=== PATIENT | female | born 1965 | race African-American/Black ===

== ENCOUNTER → 2016-12-20 10:37 | Outpatient (CLI) | payer MEDICAID ==
[2016-01-23 10:59] VITALS: BMI 39.6
[~2016-12-20 10:37] MED LIST: ASPIRIN; BENZTROPINE ME0.5 MG PO; CAFFEINE; COUMADIN5 MG PO; GLUCOPHAGE1000 MG PO; LANTUS SOL100 UNIT/1 SQ; MINOCIN100 MG PO; MOBIC7.5 MG PO; MS CONTIN15 MG PO; NORCO 10/325 TA1 TA1 PO; NORVASC10 MG PO; SEROQUEL400 MG PO; TOPAMAX25 MG PO; ZESTRIL40 MG PO; ZOLOFT100 MG PO
[2016-12-20 11:09] LABS: BASOPHILS 0.3 % (0.0-2.0); EOSINOPHILS 2.2 % (0-7); HEMATOCRIT 36.3 % (36.0-48.0); HEMOGLOBIN 12.1 g/dL (12-16); IMMATURE GRANULOCYTES 0.2 % (0-5); LYMPHOCYTES 35.1 % (15-50); MCH 27.1 pg (26.0-34.0); MCHC 33.3 g/dL (31.0-37.0); MCV 81.2 fL (80.0-100.0); MEAN PLATELET VOLUME 9.7 fL (7.4-10.4); MONOCYTES 14.3 % (2-11); NEUTROPHILS 47.9 % (40-80); RBC 4.47 10x6/uL (4.00-5.40); RDW 14.3 % (11.5-14.5); WBC 5.9 10x3/uL (4.8-10.8)
[2016-12-20 11:10] LABS: PLATELET COUNT 311 10x3/uL (130-400)
[2016-12-20 11:38] LABS: ANION GAP 10.7 mmol/L (8-16); C-REACTIVE PROTEIN 3.4 mg/dL (0.0-0.9); CALCIUM 9.2 mg/dL (8.5-10.1); CARBON DIOXIDE 26.9 mmol/L (21.0-32.0); POTASSIUM - SERUM 3.6 mmol/L (3.5-5.1)
[2016-12-20 12:21] LABS: ERYTHROCYTE SEDIMENTATION RATE 61 mm/hr (0-30)
== END | disposition home or self-care (01) ==
LOC: D.LABREF 10:37
PROVIDERS: Orthopaedic Surgery Sports Medicine
DX: T84.9XXA Unspecified complication of internal orthopedic prosthetic device, implant and graft, initial encounter (principal)

== ENCOUNTER 2017-01-19 18:10 | Emergency (ER) | payer MEDICAID ==
[2016-01-23 10:59] VITALS: BMI 39.6
[~2017-01-19 18:10] MED LIST changes: -ASPIRIN; -CAFFEINE; -MINOCIN100 MG PO
== END 2017-01-19 21:40 | disposition home or self-care (01) ==
LOC: D.ER 18:10
DX: S89.92XA Unspecified injury of left lower leg, initial encounter (principal); V43.52XA Car driver injured in collision with other type car in traffic accident, initial encounter; Y93.89 Activity, other specified; Y92.410 Unspecified street and highway as the place of occurrence of the external cause; M25.462 Effusion, left knee; E11.9 Type 2 diabetes mellitus without complications; Z79.4 Long term (current) use of insulin; G40.909 Epilepsy, unspecified, not intractable, without status epilepticus

== ENCOUNTER 2017-02-01 13:26 | Emergency (ER) | payer MEDICAID ==
[2016-01-23 10:59] VITALS: BMI 39.6
== END 2017-02-01 15:46 | disposition home or self-care (01) ==
LOC: D.ER 13:26
DX: L03.116 Cellulitis of left lower limb (principal); L02.416 Cutaneous abscess of left lower limb; E11.9 Type 2 diabetes mellitus without complications; Z79.4 Long term (current) use of insulin; G40.909 Epilepsy, unspecified, not intractable, without status epilepticus; F17.200 Nicotine dependence, unspecified, uncomplicated

== ENCOUNTER 2017-02-12 05:13 | Inpatient (IN) | payer MEDICAID ==
[2017-02-11 13:44] LABS: BASOPHILS 0.2 % (0-2); HEMOGLOBIN 11.2 g/dL (12-16); IMMATURE GRANULOCYTES 0.3 % (0-5); MCH 25.8 pg (26.0-34.0); MCV 80.6 fL (80.0-100.0); MEAN PLATELET VOLUME 9.4 fL (7.4-10.4); MONOCYTES 12.7 % (2-11); NEUTROPHILS 60.8 % (40-80); PLATELET COUNT 311 10x3/uL (130-400); RBC 4.34 10x6/uL (4.00-5.40); RDW 14.7 % (11.5-14.5); WBC 8.8 10x3/uL (4.8-10.8)
[2017-02-11 13:56] LABS: APPEARANCE CLEAR (CLEAR); BILIRUBIN NEGATIVE (NEGATIVE); COLOR DK YELLOW (YELLOW); GLUCOSE 1000 mg/dL (NEGATIVE); KETONE NEGATIVE (NEGATIVE); LEUKOCYTE ESTERASE NEGATIVE (NEGATIVE); NITRITE NEGATIVE (NEGATIVE); PROTEIN NEGATIVE (NEGATIVE); SPECIFIC GRAVITY 1.015 (1.005-1.020); UROBILINOGEN NORMAL (NORMAL)
[2017-02-11 14:07] LABS: ANION GAP 13.1 mmol/L (8-16); CALCIUM 9.3 mg/dL (8.5-10.1); CARBON DIOXIDE 25.1 mmol/L (21.0-32.0); CREATININE - SERUM 1.2 mg/dL (0.6-1.3); POTASSIUM - SERUM 4.2 mmol/L (3.5-5.1)
[2017-02-11 14:17] LABS: APTT 20.4 SECONDS (22.8-39.4); INR 0.92 (0.85-1.17); PROTIME 12.2 SECONDS (11.6-15.0)
[2017-02-12] VITALS (10 sets, daily range): BP systolic 90–129; BP diastolic 56–89; BMI 36.5
[~2017-02-12] VITALS: Ht 167.6 cm; Wt 102.5 kg
--- NOTE | ~2017-02-12 | OP ---
PATIENT NAME: SUZI SHAVER MEDICAL RECORD: [id number] :61 LOCATION:[facility] ADMISSION DATE: SURGEON: RAFITA MIRAMONTES MD DATE OF OPERATION: 02/12/2017 PREOPERATIVE DIAGNOSIS: Left infected total knee arthroplasty. POSTOPERATIVE DIAGNOSIS: Left infected total knee arthroplasty. PROCEDURE PERFORMED: Left total knee arthroplasty removal with cement spacer placement and PICC line placement by Dr. Higgins. SURGEON: Chandu Miramontes MD. ANESTHESIA: General. TOURNIQUET TIME: The tourniquet was let up for 60 minutes. CONDITION: She tolerated the procedure well, was awakened and transferred to the recovery room in stable condition. INDICATIONS: This is a 51-year-old female that had a total knee arthroplasty placed several years ago. She subsequently developed a lifestyle of IV drug abuse and other problems and has developed an infection in her left total knee. This has clearly been noted recently and she had pus coming out of her incision site this past week; therefore, we elected to go ahead and take it out. I have discussed with her prior to this that there is no guarantee I will put anything back in especially in light of her drug history. She may have to be considered for a fusion or may have to go for a second opinion, but we will cross that bridge when we get there. OPERATIVE REPORT: The patient was taken to the operating room and placed in supine position. General anesthesia was obtained. Left knee was confirmed to be the correct knee, it was prepped and draped in normal fashion. Midline incision was made using the previous incision. Once inside the joint, there was clearly foul-smelling significant amount of changes, also noted from the prosthesis being loose. Both components were removed without significant difficulty. Cement was removed as well. Both the femur and the tibia were reamed up to a size 14 to clear out the canal. They were copiously irrigated. The patella was taken off as well as the cement and pegs from the patella. While this was being accomplished, the femur and tibial spacer block was formed using 4 g of vancomycin and tobramycin in the cement. These were used forming the 2 components. Once they were hardened, they were placed. The leg was placed in extension. She had been copiously irrigated as well as extensively debrided of soft tissue. She was held in extension, following which I closed with #1 PDS, 2-0 Vicryl, harvey and then placed a Prevena dressing. Dr. Higgins then placed a PICC line. She will be on IV antibiotics. We will consultation Dr. Jackson and we will just have to see how she progresses from this juncture. TRANSINT:[id number] Voice Confirmation ID: [id number] DOCUMENT ID: [id number] OPERATIVE REPORT [id number] SUZI SHAVER, RAFITA SOMMERS MD CC: [id number] DICTATION DATE: 02/12/17 1247 CLEANER SIGNS: 02/12/17 1313 REG [facility] [address] [place] [address]
[2017-02-12] MEDS ORDERED: CAFFEINE (08:24)
[2017-02-12] MEDS ORDERED: ASPIRIN (08:24)
[2017-02-12] MEDS ORDERED: MINOCIN100 MG PO (08:29)
--- NOTE | 2017-02-12 13:22 | NUR ---
RECEIVED TO ROOM 2230 AT THIS TIME FROM PACU. PT SLEEPING, BUT AROUSABLE. IV TO LEFT FOREARM PATENT AND DRESSING TO LEFT UPPER ARM PICC LINE WITH DATE IN PLACE. VITAL SIGNS INITIATED PER POST OP PROTOCOL. CALL LIGHT IN REACH, BED ALARM ON. DOOR OPEN. WILL CONTINUE WITH PLAN OF CARE.
--- NOTE | 2017-02-12 14:52 | OP ---
PATIENT NAME: SUZI SHAVER MEDICAL RECORD: [id number] :61 LOCATION:D.[facility] ADMISSION DATE: SURGEON: JEANCARLOS SOLER MD DATE OF OPERATION: 02/12/2017 PREOPERATIVE DIAGNOSES: 1. Infected left knee prosthesis. 2. Diabetes mellitus. 3. Hypertension. 4. Obstructive sleep apnea. POSTOPERATIVE DIAGNOSES: 1. Infected left knee prosthesis. 2. Diabetes mellitus. 3. Hypertension. 4. Obstructive sleep apnea. PROCEDURE: Left brachial vein PICC line placement with ultrasound guidance. SURGEON: Jeancarlos Soler MD. REPORT OF PROCEDURE: The patient's left upper extremity was prepped and draped in sterile fashion. Using ultrasound guidance, a needle was used to cannulate the left brachial vein. The guidewire was advanced with ease. The dilator trocar device was placed over the wire and the dilator was removed. The PICC line had been cut at 40 cm with a beveled tip. This was placed over the wire through the dilator and the wire and dilator were removed. The catheter aspirated nonpulsatile dark blood and flushed easily with heparinized saline. This was sutured into place with a 2-0 Prolene and dressed appropriately. COMPLICATIONS: None. CONDITION: Stable. ANESTHESIA: General endotracheal. BLOOD LOSS: Minimal. TRANSINT:[id number] Voice Confirmation ID: [id number] DOCUMENT ID: [id number] JEANCARLOS SOLER MD at 1452 CC: [id number] DICTATION DATE: 02/12/17 1253 WATERMELON HARVESTING SUPERVISOR: 02/12/17 1345 [address] [place] [address]
--- NOTE | 2017-02-12 17:45 | NUR ---
NOTIFIED REGINO, DEPOSITION OPERATOR THAT A WOUND VAC WAS NEEDED FOR PT DUE TO FULL CANISTER ON PROVENA VAC AND DURATION OF PT'S STAY IN THE HOSPITAL.
[2017-02-13 04:00] VITALS: BP 96/54
[2017-02-13 06:39] LABS: BASOPHILS 0.2 % (0-2); EOSINOPHILS 1.4 % (0-7); IMMATURE GRANULOCYTES 0.2 % (0-5); LYMPHOCYTES 17.2 % (15-50); MCH 25.5 pg (26.0-34.0); MCV 79.7 fL (80.0-100.0); MEAN PLATELET VOLUME 9.7 fL (7.4-10.4); MONOCYTES 17.1 % (2-11); NEUTROPHILS 63.9 % (40-80); RDW 14.7 % (11.5-14.5); WBC 10.4 10x3/uL (4.8-10.8)
[2017-02-13 06:40] LABS: HEMATOCRIT 27.5 % (36.0-48.0); HEMOGLOBIN 8.8 g/dL (12-16); PLATELET COUNT 215 10x3/uL (130-400); RBC 3.45 10x6/uL (4.00-5.40)
[2017-02-13 06:46] LABS: ALBUMIN 1.9 g/dL (3.4-5.0); ANION GAP 10.5 mmol/L (8-16); BILIRUBIN - TOTAL 0.63 mg/dL (0.2-1.3); CALCIUM 8.2 mg/dL (8.5-10.1); CARBON DIOXIDE 24.1 mmol/L (21.0-32.0); CREATININE - SERUM 0.9 mg/dL (0.6-1.3); POTASSIUM - SERUM 3.6 mmol/L (3.5-5.1); PROTEIN - SERUM 6.9 g/dL (6.4-8.2)
--- NOTE | 2017-02-13 07:11 | NUR ---
FOURTH PROVENA VAC APPLIED.NO YEMI. IN NEUROVASCULAR STATUS SINCE INITIAL ASSESSMENT.
[2017-02-13 08:25] VITALS: BP 119/74
--- NOTE | 2017-02-13 09:45 | NUR ---
LEFT PICC LINE DRESSING CHANGED IN STERILE FASHION. DRESSING SIGNED AND DATED. PT TOLERATED WITHOUT COMPLAINTS.
--- NOTE | 2017-02-13 09:52 | NUR ---
Verbalized name and , states pain to right leg whenever she moves, leg assessed, immobilizer/ acewrap dressing in place and knee is swollen, portable prevena canister full, lifted device to change and noted large amount of bloody drainage flowing from top of Prevena dressing, informed charge nurse. Wound nurse Geena assessed wound, prevena dressing is saturated but dressing is intact and suctioning as it should, connected to bedside prevena canister, immediately flow into canister, dressing reinforced and secured in place.
--- NOTE | 2017-02-13 10:45 | NUR ---
WOUND CARE: ULTA VAC (HOSPITAL VAC) ATTACHED TO PREVENA DRESSING ON LEFT KNEE D/T LARGE AMOUNT OF BLOODY DRAINAGE. REINFORCED PREVENA DRESSING WITH EXTRA DRAPE. WILL MONITOR.
[2017-02-13 10:59] VITALS: BP 123/69
--- NOTE | 2017-02-13 11:30 | NUR ---
Dressing to left knee remains dry and intact with prevena bedside canister in place. SCD hose in place to right leg. Pain is managed.
--- NOTE | 2017-02-13 12:44 | NUR ---
Patient Name: SUZI SHAVER Admission Status: Elective Accout number: [id number] Admission Date: 02-12-2017 : 1965 Admission Diagnosis:INFECT/INFLM REACTION DUE TO INTERNAL LEFT KNEE PROSTH, Attending: PADMINI Current LOS: 1 Anticipated DC Date: 02-16-2017 Planned Disposition: Home with Home Health Primary Insurance: [place]ID [place] Discharge Planning Comments: CM MET WITH PATIENT REGARDING D/C NEEDS AND PLANS. PATIENT STATED SHE LIVES WITH HER MOM AND SHE WILL DRIVE HER HOME AT DISCHARGE. PATIENT STATED SHE IS INDEPENDENT AT HOME AND HAS A WALKER, CANE, SHOWER CHAIR, VS COMMODE, AND GLUCOMETER (TRYS TO CHECK DAILY). PATIENT STATED HER PCP IS AT [facility] ([facility] AT THAT CLINIC). PATIENT USES [facility] [address]. PATIENT CHOSE [facility] AND SIGNED THE KARLA FORM IF NEEDED AT DISCHARGE. CM WILL CONTINUE TO FOLLOW PATIENT WITH D/C NEEDS AND PLANS. PCP [facility]ONA [facility] ([facility]) [facility] ([facility]) GAURAV FLANAGAN ([facility] [phone] OR [phone] Ancillary Services Manager: La Friedman Is the patient Alert and Oriented? Yes 0 * How many steps to enter\exit or inside your home? 0 0 * PCP RONA DUARTE ([facility]) 0 * [facility]acy [facility] [address] [facility] * Preadmission Environment Home with Family 0 * ADLs Independent 0 * Equipment Bedside Commode Cane Glucometer Shower Chair Walker 0 * List name and contact numbers for known caregivers / representatives who currently or will assist patient after discharge: GAURAV FLANAGAN ([facility]) [phone] OR [phone] * Community resources currently utilized None 0 * Additional services required to return to the preadmission environment? Yes 0 * Can the patient safely return to the preadmission environment? Yes 0 * Has this patient been hospitalized within the prior 30 days at any hospital? No 0 Grand Total: 0
[2017-02-13 15:44] VITALS: Ht 167.6 cm; Wt 102.5 kg
[2017-02-13 16:01] VITALS: BP 140/91
--- NOTE | 2017-02-13 20:15 | NUR ---
PATIENT IS RESTING WITH EYES CLOSED. NO VISIBLE SIGNS OF DISTRESS. BED IN LOWEST POSITION, CALL LIGHT WITHIN REACH, AND BED ALARM ON.
[2017-02-13 20:49] VITALS: BP 125/72
[2017-02-14 00:43] VITALS: BP 120/73
[2017-02-14 04:00] VITALS: BP 112/72
[2017-02-14 05:26] LABS: BASOPHILS 0.2 % (0-2); EOSINOPHILS 1.7 % (0-7); HEMATOCRIT 25.6 % (36.0-48.0); HEMOGLOBIN 8.3 g/dL (12-16); IMMATURE GRANULOCYTES 0.3 % (0-5); LYMPHOCYTES 19.1 % (15-50); MCH 25.7 pg (26.0-34.0); MCHC 32.4 g/dL (31.0-37.0); MCV 79.3 fL (80.0-100.0); MEAN PLATELET VOLUME 9.6 fL (7.4-10.4); MONOCYTES 19.1 % (2-11); NEUTROPHILS 59.6 % (40-80); PLATELET COUNT 187 10x3/uL (130-400); RBC 3.23 10x6/uL (4.00-5.40); RDW 14.6 % (11.5-14.5); WBC 13.5 10x3/uL (4.8-10.8)
[2017-02-14 05:47] LABS: ALBUMIN 1.9 g/dL (3.4-5.0); ALKALINE PHOSPHATASE 119 U/L (46-116); BILIRUBIN - TOTAL 0.56 mg/dL (0.2-1.3); CALCIUM 8.4 mg/dL (8.5-10.1); CARBON DIOXIDE 25.3 mmol/L (21.0-32.0); CHLORIDE - SERUM 100 mmol/L (98-107); CREATININE - SERUM 0.8 mg/dL (0.6-1.3); POTASSIUM - SERUM 3.2 mmol/L (3.5-5.1); PROTEIN - SERUM 6.8 g/dL (6.4-8.2); SODIUM 131 mmol/L (136-145); eGFR NON AFRICAN AMERICAN 79 mL/min (90-120)
[2017-02-14 05:52] LABS: ALT (SGPT) 14 U/L (10-68); CALC OSMOLALITY 272 mosm/kg (275-300); GLUCOSE 308 mg/dL (74-106); UREA NITROGEN 6 mg/dL (7-18)
[2017-02-14 07:58] VITALS: BP 114/63
--- NOTE | 2017-02-14 08:17 | NUR ---
PT ASESSMENT COMPLETE AWAKE AND ALERT EATING BREAKFAST NO ACUTE DISTRESS NTOED PT WITH FLAT AFFECT AND IS SLOW TO PROCESS INFORMATION AND RESPOND. WOUND VAC IN PLACE AND PATENT TO SANGUANOUS DRAINAGE NOTED DAY 2 POST OF SPACE PLACEMENT AND HARDWARE REMOVAL TO LEFT KNEE.
[2017-02-14 10:18] LABS: HEPATITIS C ANTIBODY >11.0 (0.0-0.9)
[2017-02-14 12:34] VITALS: BP 153/87
--- NOTE | 2017-02-14 13:20 | NUR ---
PATIENT IN LEFT LATERAL POSITION RESTING QUIETLY. RESPIRATIONS EVEN AND UNLABORED. DENIES NEEDS. SIDE RAILS UP X2. BED IN LOW POSITION. CALL LIGHT IN REACH.
[2017-02-14 16:03] VITALS: BP 149/85
--- NOTE | 2017-02-14 18:50 | NUR ---
WOUND VAC PATENT TO SEROSANGUANOUS DRAINAGE TO CANISTER. PAIN TREATED PER ORDER.
[2017-02-14 20:00] VITALS: BP 121/65
--- NOTE | 2017-02-14 20:00 | NUR ---
PATIENT RESTING IN BED AND DENIES NEEDS AT THIS TIME. BED IN LOWEST POSITION, CALL LIGHT WITHIN REACH, AND BED ALARM ON. ENCOURAGED THE PATIENT TO CALL IF SHE HAS FURTHER NEEDS.
[2017-02-15] VITALS: BP 111/60
[2017-02-15 04:00] VITALS: BP 117/69
[2017-02-15 06:38] LABS: BASOPHILS 0.2 % (0-2); HEMATOCRIT 22.7 % (36.0-48.0); IMMATURE GRANULOCYTES 0.4 % (0-5); LYMPHOCYTES 24.1 % (15-50); MCH 25.8 pg (26.0-34.0); MCHC 32.6 g/dL (31.0-37.0); MCV 79.1 fL (80.0-100.0); MEAN PLATELET VOLUME 9.6 fL (7.4-10.4); NEUTROPHILS 58.3 % (40-80); PLATELET COUNT 171 10x3/uL (130-400); RBC 2.87 10x6/uL (4.00-5.40)
[2017-02-15 06:43] LABS: WBC 8.6 10x3/uL (4.8-10.8)
[2017-02-15 06:52] LABS: HEMOGLOBIN 7.4 g/dL (12-16)
[2017-02-15 07:09] LABS: ALBUMIN 1.7 g/dL (3.4-5.0); ALKALINE PHOSPHATASE 149 U/L (46-116); ALT (SGPT) 15 U/L (10-68); CALCIUM 8.5 mg/dL (8.5-10.1); CHLORIDE - SERUM 103 mmol/L (98-107); CREATININE - SERUM 0.6 mg/dL (0.6-1.3); POTASSIUM - SERUM 3.4 mmol/L (3.5-5.1); PROTEIN - SERUM 6.3 g/dL (6.4-8.2); SODIUM 135 mmol/L (136-145); UREA NITROGEN 6 mg/dL (7-18); eGFR NON AFRICAN AMERICAN > 90 mL/min (90-120)
[2017-02-15 07:14] LABS: CALC OSMOLALITY 269 mosm/kg (275-300); GLUCOSE 142 mg/dL (74-106)
--- NOTE | 2017-02-15 07:45 | NUR ---
PT ASSESSMENT COMPLETE AWAKE AND ALERT ORINETD O SELF ONLY HAS SLOW PROCESSING OF INFORMATION NOTED. WOUND VAC T LEFT KNEE IMMOBILIZER IN PLACE
--- NOTE | 2017-02-15 14:08 | NUR ---
NUTRITION MONITORING & EVAL PT VISIT. TOLERATING REG DIET, 100% INTAKE RECENT MEALS. RD FOLLOWING
--- NOTE | 2017-02-15 17:30 | NUR ---
PT ASSESSMENT COMPLETE NO ACUTE DISTRESS NOTED VOICES ALL NEEDS TO STAFF 2 UNITS OF BLOOD GIVEN PER ORDER. 2ND UNIT TRANSFUSING AT THIS TIME
--- NOTE | 2017-02-15 20:00 | NUR ---
PT RECEIVED SITTING UP IN ROOM WATCHING TELEVISION. ASSESSMENT COMPLETED PER FLOWSHEET. DENIES NEEDS AT THIS TIME. BED IN LOW POSITION. SIDE RAILS UP X2. CALL LIGHT AND H2O IN PT REACH.
--- NOTE | 2017-02-15 21:13 | NUR ---
PATIENT RESTING IN BED WITH NO SIGNS OF DISTRESS AND DENIES NEEDS AT THIS TIME. CHECKED PATIENT'S BLOOD GLUCOSE, RESULTS 157. NOTIFIED BECKI JIN OF RESULTS. BED IN LOWEST POSITION, CALL LIGHT WITHIN REACH, AND BED ALARM IS ON. ENCOURAGED THE PATIENT TO CALL IF SHE HAS FURTHER NEEDS.
[2017-02-16] VITALS: BP 109/68
[2017-02-16 04:00] VITALS: BP 142/92
[2017-02-16 05:13] LABS: BASOPHILS 0.3 % (0-2); EOSINOPHILS 3.8 % (0-7); HEMATOCRIT 26.2 % (36.0-48.0); HEMOGLOBIN 8.6 g/dL (12-16); IMMATURE GRANULOCYTES 0.1 % (0-5); MCH 26.3 pg (26.0-34.0); MCHC 32.8 g/dL (31.0-37.0); MCV 80.1 fL (80.0-100.0); MEAN PLATELET VOLUME 9.5 fL (7.4-10.4); MONOCYTES 17.2 % (2-11); NEUTROPHILS 52.6 % (40-80); RBC 3.27 10x6/uL (4.00-5.40); RDW 14.9 % (11.5-14.5); WBC 8.7 10x3/uL (4.8-10.8)
[2017-02-16 05:14] LABS: PLATELET COUNT 212 10x3/uL (130-400)
[2017-02-16 05:41] LABS: ALBUMIN 1.7 g/dL (3.4-5.0); ALKALINE PHOSPHATASE 127 U/L (46-116); ALT (SGPT) 14 U/L (10-68); CALCIUM 8.3 mg/dL (8.5-10.1); CARBON DIOXIDE 25.6 mmol/L (21.0-32.0); CHLORIDE - SERUM 103 mmol/L (98-107); GLUCOSE 109 mg/dL (74-106); POTASSIUM - SERUM 3.3 mmol/L (3.5-5.1); PROTEIN - SERUM 6.5 g/dL (6.4-8.2); SODIUM 136 mmol/L (136-145); eGFR NON AFRICAN AMERICAN 79 mL/min (90-120)
[2017-02-16 05:42] LABS: CALC OSMOLALITY 271 mosm/kg (275-300); CREATININE - SERUM 0.8 mg/dL (0.6-1.3); UREA NITROGEN 9 mg/dL (7-18)
--- NOTE | 2017-02-16 08:38 | NUR ---
PT RESTING IN BED WITH EYES OPEN PT EATING BREAKFAST CALL LIGHT IN REAC WILL MONITER
[2017-02-16 09:55] VITALS: BP 124/76
[2017-02-16 12:31] VITALS: BP 108/76
--- NOTE | 2017-02-16 14:30 | NUR ---
PT AOX4 RESP EVEN AND NONLABORED PT DENIES NEEDS AT THIS TIME. PT HERE FOR INFECTED LEFT KNEE. IV LEFT PICC PATENT AND INTACT. PT DENIES NEEDS AT THIS TIME. BED AT LOWEST SETTING. SRX2 CALL LIGHT WITHIN REACH WILL CONTINUE TO MONITOR
[2017-02-16 16:50] VITALS: BP 137/90
--- NOTE | 2017-02-16 17:25 | NUR ---
PT RESTING IN BED WITH EYES OPEN CALL LIGHT IN REACH WILL MONITER
--- NOTE | 2017-02-16 17:56 | NUR ---
PT RESTING IN BED WITH EYES OPEN CALL LIGHT IN REACH WILL MONITER
[2017-02-16 19:00] VITALS: BP 129/83
[2017-02-17] VITALS: BP 118/71
[2017-02-17 04:00] VITALS: BP 120/74
[2017-02-17 05:40] LABS: BASOPHILS 0.3 % (0-2); EOSINOPHILS 3.2 % (0-7); HEMOGLOBIN 8.4 g/dL (12-16); IMMATURE GRANULOCYTES 0.1 % (0-5); LYMPHOCYTES 22.8 % (15-50); MCHC 32.3 g/dL (31.0-37.0); MCV 80.5 fL (80.0-100.0); MEAN PLATELET VOLUME 9.3 fL (7.4-10.4); MONOCYTES 22.8 % (2-11); NEUTROPHILS 50.8 % (40-80); PLATELET COUNT 242 10x3/uL (130-400); RBC 3.23 10x6/uL (4.00-5.40); RDW 15.1 % (11.5-14.5); WBC 7.1 10x3/uL (4.8-10.8)
[2017-02-17 06:04] LABS: ALBUMIN 1.8 g/dL (3.4-5.0); ALKALINE PHOSPHATASE 128 U/L (46-116); ALT (SGPT) 14 U/L (10-68); CALC OSMOLALITY 272 mosm/kg (275-300); CALCIUM 8.5 mg/dL (8.5-10.1); CARBON DIOXIDE 25.6 mmol/L (21.0-32.0); CHLORIDE - SERUM 104 mmol/L (98-107); CREATININE - SERUM 0.8 mg/dL (0.6-1.3); GLUCOSE 118 mg/dL (74-106); POTASSIUM - SERUM 3.5 mmol/L (3.5-5.1); PROTEIN - SERUM 6.9 g/dL (6.4-8.2); SODIUM 137 mmol/L (136-145); UREA NITROGEN 8 mg/dL (7-18); eGFR NON AFRICAN AMERICAN 79 mL/min (90-120)
--- NOTE | 2017-02-17 07:37 | NUR ---
PT REC'D FROM SAEED GUERRIER. RESTING IN BED ON L SIDE. WOUND VAC TO L KNEE PULLING SANGUINOUS FLUID. NO CURRENT COMPLAINTS OF PAIN. AAOX4. BED LOW, CALL LIGHT IN REACH, DENIES NEEDS. CPOC.
--- NOTE | 2017-02-17 08:20 | NUR ---
MORNING MEDS PASSED AT THIS TIME. STILL NO COMPLAINTS OF PAIN. BLINDS CLOSED BECAUSE PT STATED SHE DID NOT GET ANY SLEEP LAST NIGHT AND WOULD LIKE TO TAKE A NAP TODAY. BED LOW, CALL LIGHT IN REACH, DENIES NEEDS. CPOC.
[2017-02-17 08:22] VITALS: BP 128/81
--- NOTE | 2017-02-17 08:57 | NUR ---
PATIENT ALERT IN HIGH SHANE POSITION. NO SIGNS OF DISTRESS NOTED. SIDE RAILS UP X2. BED IN LOW POSITION. CALL LIGHT IN REACH.
--- NOTE | 2017-02-17 11:40 | NUR ---
PT UP IN CHAIR AT BEDSIDE. ASSISTED BY PHYSICAL THERAPY. ALICIA, PHYSICAL THERAPIST, STATED PT TRANSFERS WELL WITH WALKER AND MINIMAL ASSISTANCE. CURRENT FSBS 144. NO INSULIN ADMINISTERED PER SS. PRN PAIN MEDICATION ADMINISTERED DUE TO PT COMPLAINTS OF 8/10 LEG PAIN. WILL REASSESS. CALL LIGHT IN REACH, DENIES NEEDS. CPOC.
[2017-02-17 14:04] VITALS: BP 118/74
--- NOTE | 2017-02-17 14:28 | NUR ---
ASSISTED PT ONTO BEDPAN. URINATED APPROXIMATELY 500CC'S OF CLEAR YELLOW URINE. ABLE TO REPOSITION SELF IN BED. CALL LIGHT IN REACH, DENIES NEEDS.
--- NOTE | 2017-02-17 15:27 | NUR ---
PT RESTING IN BED WITH EYES CLOSED. NO SIGNS OF DISTRESS. RESP EVEN AND UNLABORED. BED LOW, CALL LIGHT IN REACH, CPOC.
[2017-02-17 16:45] VITALS: BP 128/79
--- NOTE | 2017-02-17 20:19 | NUR ---
PATIENT RESTING IN BED WITH NO VISIBLE SIGNS OF DISTRESS. BROUGHT PATIENT DIET COKE PER HER REQUEST. CHECKED PATIENT'S BLOOD GLUCOSE, RESULTS 168. NOTIFIED BECKI RICO OF RESULTS. PATIENT'S BED IN LOWEST POSITION, CALL LIGHT WITHIN REACH, AND BED ALARM ON. ENCOURAGED THE PATIENT TO CALL IF SHE HAS FURTHER NEEDS.
[2017-02-17 20:22] VITALS: BP 135/75
--- NOTE | 2017-02-17 20:49 | NUR ---
REC'D.ASSISTED TO BATHRM.VOIDED LGE AMT.DK. SHELLIE URINE.KNEE IMMOB. WITH WD. VAC INTACT TO LEFT LEG TOES VISIBLE WARM WIGGLES DENIES PAIN AT PRESENT TIME WILL CONTINUE TO MONITOR FOR ANY CHGES. IN NEUROVASCULAR STATUS AND FOLLOW CURRENT PLAN OF CARE.
[2017-02-18] VITALS: BP 122/71
[2017-02-18 04:00] VITALS: BP 135/84
[2017-02-18 06:21] LABS: BASOPHILS 0.3 % (0-2); EOSINOPHILS 1.3 % (0-7); HEMATOCRIT 26.5 % (36.0-48.0); HEMOGLOBIN 9.1 g/dL (12-16); IMMATURE GRANULOCYTES 0.4 % (0-5); LYMPHOCYTES 20.9 % (15-50); MCH 27.5 pg (26.0-34.0); MCHC 34.3 g/dL (31.0-37.0); MCV 80.1 fL (80.0-100.0); MEAN PLATELET VOLUME 9.2 fL (7.4-10.4); MONOCYTES 17.9 % (2-11); NEUTROPHILS 59.2 % (40-80); PLATELET COUNT 287 10x3/uL (130-400); RBC 3.31 10x6/uL (4.00-5.40); RDW 15.5 % (11.5-14.5); WBC 7.6 10x3/uL (4.8-10.8)
[2017-02-18 06:50] LABS: ALBUMIN 1.9 g/dL (3.4-5.0); ALKALINE PHOSPHATASE 116 U/L (46-116); ALT (SGPT) 13 U/L (10-68); CALC OSMOLALITY 274 mosm/kg (275-300); CALCIUM 8.6 mg/dL (8.5-10.1); CARBON DIOXIDE 24.3 mmol/L (21.0-32.0); CHLORIDE - SERUM 104 mmol/L (98-107); CREATININE - SERUM 0.8 mg/dL (0.6-1.3); GLUCOSE 138 mg/dL (74-106); POTASSIUM - SERUM 3.5 mmol/L (3.5-5.1); PROTEIN - SERUM 7.3 g/dL (6.4-8.2); SODIUM 137 mmol/L (136-145); UREA NITROGEN 9 mg/dL (7-18); eGFR NON AFRICAN AMERICAN 79 mL/min (90-120)
--- NOTE | 2017-02-18 07:30 | NUR ---
PT ASSESSMENT COMPLETE AWAKE AND ALERT ORIENTED TO NAME AND PLACE WOUND VAC NOTED TO LEFT KNEE AND IMMOBILIZER IN PLACE. PAIN TREATED PER ORDER. CALL LIGHT IN REACH SIDE RAILS UP X 2
--- NOTE | 2017-02-18 07:45 | NUR ---
PATIENT IN LEFT LATERAL POSITION RESTING WITH EYES CLOSED. RESPIRATIONS EVEN AND UNLABORED. SIDE RAILS UP X2. BED IN LOW POSITION. CALL LIGHT IN REACH.
[2017-02-18 08:44] VITALS: BP 150/85
[2017-02-18 12:00] VITALS: BP 124/75
--- NOTE | 2017-02-18 15:24 | NUR ---
NO ACUTE DISTRESS NOTED WAS UP IN CHAIR AT BEDSIDE X 3 HRS PER THERAPY TODAY TOLERATED WELL WOUND VAC IN TACT. IMMOBILIZER NOTED TO LEFT KNEE SEROSANGUANOUS DRAINAGE NTOED TO WOUND VAC TUBING.
[2017-02-18 16:56] VITALS: BP 104/67
[2017-02-18 18:00] VITALS: BP 120/79
--- NOTE | 2017-02-18 22:22 | NUR ---
PATIENT RESTING IN BED. ALERT AND ORIENTED. C/O PAIN 10/10 TO KNEE. PRN NORCO GIVEN ORDERED. SCHEDULED MEDS GIVEN. SHIFT ASSESSMENT COMPLETED. ASSISTED WITH BED DUARTE. NO OTHER NEEDS VOICED AT THIS TIME. BED LOW. CALL LIGHT IN REACH
--- NOTE | 2017-02-19 02:00 | NUR ---
PT IN BED WITH NO DISTRESS. RESPIRATIONS EVEN AND UNLABORED. SIDE RAILS X 2. BED LOW. CALL LIGHT IN REACH.
[2017-02-19 04:00] VITALS: BP 125/71
--- NOTE | 2017-02-19 04:00 | NUR ---
NO DISTRESS NOTED. AGREE WITH ACTION FINISHER ASSESSMENT.
[2017-02-19 05:54] LABS: HEMATOCRIT 26.5 % (36.0-48.0); HEMOGLOBIN 8.5 g/dL (12-16); MCH 25.8 pg (26.0-34.0); MCHC 32.1 g/dL (31.0-37.0); MCV 80.5 fL (80.0-100.0); MEAN PLATELET VOLUME 8.9 fL (7.4-10.4); PLATELET COUNT 324 10x3/uL (130-400); RBC 3.29 10x6/uL (4.00-5.40); RDW 15.7 % (11.5-14.5); WBC 7.2 10x3/uL (4.8-10.8)
[2017-02-19 06:24] LABS: ALBUMIN 1.9 g/dL (3.4-5.0); ALKALINE PHOSPHATASE 126 U/L (46-116); ALT (SGPT) 13 U/L (10-68); C-REACTIVE PROTEIN 3.1 mg/dL (0.0-0.9); CALC OSMOLALITY 274 mosm/kg (275-300); CALCIUM 8.5 mg/dL (8.5-10.1); CHLORIDE - SERUM 106 mmol/L (98-107); CREATININE - SERUM 0.8 mg/dL (0.6-1.3); POTASSIUM - SERUM 3.5 mmol/L (3.5-5.1); PROTEIN - SERUM 7.2 g/dL (6.4-8.2); SODIUM 139 mmol/L (136-145); UREA NITROGEN 8 mg/dL (7-18); eGFR NON AFRICAN AMERICAN 79 mL/min (90-120)
[2017-02-19 06:31] LABS: GLUCOSE 73 mg/dL (74-106)
[2017-02-19 07:34] LABS: EOSINOPHILS 2 % (0-7); LYMPHOCYTES 27 % (15-50); MONOCYTES 15 % (2-11); NEUTROPHILS 55 % (40-80); PLATELET ESTIMATE NORMAL
[2017-02-19 07:55] LABS: ERYTHROCYTE SEDIMENTATION RATE 78 mm/hr (0-30)
[2017-02-19 08:52] VITALS: BP 124/72
--- NOTE | 2017-02-19 09:05 | NUR ---
PATIENT IN LEFT LATERAL POSITION RESTING QUIETLY. RESPIRATIONS EVEN AND UNLABORED. SIDE RAILS UP X2. BED IN LOW POSITION. CALL LIGHT IN REACH.
--- NOTE | 2017-02-19 10:45 | NUR ---
PT SITTING UP IN CHAIR AT BEDSIDE AWAKE AND ALERT ORINETD X 3 LUNGS CLAER BILATERALLY. PAIN TREATED PER ORDER WITH NORCO.
--- NOTE | 2017-02-19 11:13 | NUR ---
PREVENA DRESSING REMOVED FROM INCISION TO LEFT KNEE. CLEANSED WITH SAFCLEANS AND PATTED DRY. APPLIED AQUACEL AG DRESSING, WRAPPED WITH NIMESH AND REAPPLIED THE KNEE BRACE. PT TOLERATED WELL.
--- NOTE | 2017-02-19 13:01 | NUR ---
NUTRITION MONITORING & EVAL CHART REVIEWED, PT TOLERATING DIABETIC DIET. 100% INTAKE RECENT MEALS. WILL CONTINUE TO PROVIDE DIET, MONITOR PO INTAKE. RD FOLLOWING
[2017-02-19 13:45] VITALS: BP 136/83
[2017-02-19 16:55] VITALS: BP 110/69
--- NOTE | 2017-02-19 21:48 | NUR ---
PATIENT RESTING IN BED. ALERT AND ORIENTED. NO SIGNS OF DISTRESS NOTED. SCHEDULED MEDS GIVEN. SHIFT ASSESSMENT COMPLETED. DENIES ANY NEEDS AT THIS TIME. BED LOW. CALL LIGHT IN REACH
[2017-02-20] VITALS: BP 109/67
--- NOTE | 2017-02-20 02:00 | NUR ---
PT IN BED WITH NO DISTRESS. RESPIRATIONS ARE EVEN AND UNLABORED. SIDE RAILS X 2. BED IS LOW. CALL LIGHT IS WITHIN REACH.
[2017-02-20 04:00] VITALS: BP 138/89
[2017-02-20 05:36] LABS: BASOPHILS 0.3 % (0-2); EOSINOPHILS 3.3 % (0-7); HEMATOCRIT 26.9 % (36.0-48.0); HEMOGLOBIN 8.8 g/dL (12-16); IMMATURE GRANULOCYTES 0.6 % (0-5); LYMPHOCYTES 25.9 % (15-50); MCH 26.4 pg (26.0-34.0); MCHC 32.7 g/dL (31.0-37.0); MCV 80.8 fL (80.0-100.0); MEAN PLATELET VOLUME 8.8 fL (7.4-10.4); MONOCYTES 18.3 % (2-11); NEUTROPHILS 51.6 % (40-80); PLATELET COUNT 370 10x3/uL (130-400); RBC 3.33 10x6/uL (4.00-5.40); WBC 7.2 10x3/uL (4.8-10.8)
[2017-02-20 06:02] LABS: ALKALINE PHOSPHATASE 125 U/L (46-116); ALT (SGPT) 11 U/L (10-68); CALC OSMOLALITY 274 mosm/kg (275-300); CARBON DIOXIDE 23.6 mmol/L (21.0-32.0); CHLORIDE - SERUM 104 mmol/L (98-107); CREATININE - SERUM 0.8 mg/dL (0.6-1.3); GLUCOSE 107 mg/dL (74-106); POTASSIUM - SERUM 3.7 mmol/L (3.5-5.1); PROTEIN - SERUM 7.6 g/dL (6.4-8.2); SODIUM 138 mmol/L (136-145); UREA NITROGEN 9 mg/dL (7-18); eGFR NON AFRICAN AMERICAN 79 mL/min (90-120)
--- NOTE | 2017-02-20 08:55 | NUR ---
ENTERED PATIENT'S ROOM, PATIENT SITTING UP ON THE SIDE OF THE BED, IMMOBILIZER OFF OF LEFT LEG, KNEE BENT. I STATED "WHO TOOK YOUR IMMOBILIZER OFF?" PATIENT STATED "I DID SO YOU CAN CHANGE THE DRESSING. THE PHYSICAL THERAPY LADY IS GOING TO GET ME UP AND IT STARTED BLEEDING SO I TOOK IT OFF." I EXPLAINED TO PATIENT THAT HER LEG HAS TO STAY STRAIGHT. PHYSICAL THERAPY ASSISTED PATIENT GETTING BACK IN BED, LAYING DOWN. WENT OUT TO THE DESK AND TOLD JANIS, NURSE PRACTIONER FOR . SHE STATED "APPLY XEROFORM, 4X4 GAUZE, ABD PAD AND MAKE A PRESSURE DRESSING."
[2017-02-20 09:01] VITALS: BP 126/80
[2017-02-20] MEDS ORDERED: HYDROCODONE-APA1 TAB PO (09:11)
[2017-02-20] MEDS ORDERED: ELIQUIS2.5 MG PO (09:12)
--- NOTE | 2017-02-20 09:15 | NUR ---
REMOVED OLD DRESSING. CLEANED WITH STERILE WOUND IT APPLICATIONS DEVELOPER AND STERILE 4X4 GAUZE. SMALL AMOUNT OF BLOOD DRIPING FROM INFERIOR PORTION OF THE INCISION, HAIDER INTACT. APPLIED XEROFORM, 4X4 GAUZE, 2 ABD PADS, AND SECURED A PRESSURE DRESSING USING CLOTH TAPE. WRAPPED WITH A NEW NIMESH BANDAGE. APPLIED IMMOBILIZER. EDUCATED PATIENT ON THE IMPORTANCE OF KEEPING KNEE STRAIGHT AND IMMOBILIZER ON. 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
--- NOTE | 2017-02-20 10:36 | NUR ---
CM REASSESSMENT NOTE: PATIENT IS DISCHARGING HOME TODAY-MOTHER DRIVING. PATIENT LIVES WITH HER MOTHER AND SHE WILL HELP WITH HER CARE AT HOME. PATIENT SIGNED THE KARLA FORM WITH [facility]/REFERRAL SENT. PATIENTS WHEELCHAIR WILL BE DELIVERED TO HER ROOM ([facility]) BEFORE DISCHARGE TODAY. PATIENT HAD NO OTHER NEEDS FOR DISCHARGE.
[2017-02-20] MEDS ORDERED: KEFLEX500 MG PO (11:02)
--- NOTE | 2017-02-20 11:05 | NUR ---
CALLED IN ORDER FOR AGUEDA TO [facility] SPOKE WITH CHEMO, PHARMACIST.
[2017-02-20 12:00] VITALS: BP 127/84
--- NOTE | 2017-02-20 13:32 | NUR ---
Order received for PICC line removal. Patient with left upper arm PICC line intact. PICC line sutures removed and removed following proper hospital policy. Pressure to site x 5 minutes, no bleeding noted. Tegaderm dressing applied and instructed on post hospital care. Meme Shaffer RN
--- NOTE | 2017-02-20 16:47 | NUR ---
ADMINISTERED FLEETS ENEMA
--- NOTE | 2017-02-20 16:59 | NUR ---
PATIENT HAD A MEDIUM SIZED BOWEL MOVEMENT. NOW BACK IN BED.
--- NOTE | 2017-02-20 17:51 | NUR ---
DISCHARGE INSTRUCTIONS COMPLETED WITH PATIENT AND HER MOM. BOTH VERBALIZED UNDERSTANDING AND DENY QUESTIONS.
[2017-02-20 17:56] VITALS: BP 103/69
--- NOTE | 2017-02-20 18:03 | NUR ---
TOOK PATIENT OUT VIA WHEELCHAIR. ASSISTED PATIENT GETTING INTO THE TRUCK.
[2017-02-21 18:10] LABS: AEROBE ID Final report (())
--- NOTE | 2017-02-22 16:36 | EC ---
PATIENT:SUZI SHAVER DATE OF SERVICE: 02/12/17 SEX: F MEDICAL RECORD: [id number] DATE OF : [birth year] LOCATION:D.[facility] AGE OF PATIENT: 51 ADMISSION DATE: 02/12/17 REFERRING PHYSICIAN: INTERPRETING PHYSICIAN: TIANA SELBY MD ECHOCARDIOGRAM REPORT ECHO CHARGES 4 ECHO COMPLETE CLINICAL DIAGNOSIS: MURMUR ECHOCARDIOGRAPHIC MEASUREMENTS (adult normal given) AC root (d.<3.7cm) 3.6 LV Septum d (<1.2 cm> 1.5 Valve Excursion 2.5 LV Septum (systole) 2.2 Left Atria (s.<4.0cm> 2.7 LVPW d(<1.2cm) 1.5 RV (d.<2.3cm) 3.3 LVPW (sytole) 2.2 LV diastole(<5.6CM) 4.7 MV E-F(>70mm/sec) LV systole 2.1 LVOT Diameter 2.0 MV exc.(>10mm) Est.ejection fraction (50-75%) Pericardial Effusion N DOPPLER: LVIT A 111.0 E 75.0 LA RVSP 53.1 LVOT 172 AOP1/2T 648.0 Asc. Ao 204 RVOT 69.0 RA PA 108 AV Gradient Peak 17.0 AV Mean 7.0 AV Area 2.8 MV Gradient Peak 6.9 MV Mean 2.9 MV Area COMMENTS: Production Statistical Clerk: Elvira CHAIDEZOE Cleaner Carpet And Upholstery:Zoey Ochoa TAPE# PACS DATE OF SERVICE: 02/13/2017 FINDINGS: 1. Left ventricular chamber size is within normal limits. Left ventricular systolic function is normal. Overall ejection fraction estimated at 65%. 2. Left atrium is within normal limits at 2.7 cm. Right atrium and right ventricular chamber sizes are mildly dilated. 3. Valvular structures have normal structure and motion. 4. Doppler interrogation reveals mild to moderate aortic insufficiency, moderate tricuspid regurgitation, no other valvular insufficiency or stenosis; ECHOCARDIOGRAM REPORT [id number] SUZI SHAVER however, pulmonary systolic pressure is elevated estimated at 53 mmHg. 5. No evidence of pericardial effusion or left ventricular thrombus. TRANSINT:[id number] Voice Confirmation ID: [id number] DOCUMENT ID: [id number] TIANA SELBY MD at 1636 CC: [id number] DICTATION DATE: 02/13/17 1745 KINDERGARTEN AIDE: 02/14/17 0339 DIS IN 02/20/17 [facility] [address] [address]
[2017-02-24 16:07] LABS: AEROBE ID Final report (())
== END 2017-02-20 18:03 | disposition home health service (06) | DRG 465 ==
LOC: D.OPS 05:13 → D.MS 05:13 → D.PAN 09:30 → D.OPS 09:30 → D.MS 13:18 → D.OPS 13:19 → D.MS 13:20
PROVIDERS: Family Medicine Adult Medicine; Student in an Organized Health Care Education/Training Program; ADMIT Orthopaedic Surgery Sports Medicine
PROC: B54NZZA Ultrasonography of Left Upper Extremity Veins, Guidance (ICD-10-PCS; 2017-02-12)
PROC: 0SPD0JZ Removal of Synthetic Substitute from Left Knee Joint, Open Approach (ICD-10-PCS; principal; 2017-02-12 09:30)
PROC: 0SHD08Z Insertion of Spacer into Left Knee Joint, Open Approach (ICD-10-PCS; 2017-02-12 09:30)
PROC: 05HA33Z Insertion of Infusion Device into Left Brachial Vein, Percutaneous Approach (ICD-10-PCS; 2017-02-12 09:30)
DX: T84.54XA Infection and inflammatory reaction due to internal left knee prosthesis, initial encounter (principal); E11.65 Type 2 diabetes mellitus with hyperglycemia; F31.9 Bipolar disorder, unspecified; I10 Essential (primary) hypertension; J45.909 Unspecified asthma, uncomplicated; F41.9 Anxiety disorder, unspecified; G47.33 Obstructive sleep apnea (adult) (pediatric); Z79.4 Long term (current) use of insulin; F32.9 Major depressive disorder, single episode, unspecified

== ENCOUNTER → 2017-04-22 14:38 | Outpatient (CLI) | payer MEDICAID ==
[2017-02-13 15:44] VITALS: BMI 36.4
[~2017-04-22 14:38] MED LIST changes: +ASPIRIN; +CAFFEINE; +ELIQUIS2.5 MG PO; +HYDROCODONE-APA1 TAB PO; +KEFLEX500 MG PO; +MINOCIN100 MG PO
[2017-04-22 15:29] LABS: BASOPHILS 0.7 % (0-2); EOSINOPHILS 2.3 % (0-7); HEMATOCRIT 36.3 % (36.0-48.0); HEMOGLOBIN 11.5 g/dL (12-16); IMMATURE GRANULOCYTES 0.2 % (0-5); MCH 26.6 pg (26.0-34.0); MCHC 31.7 g/dL (31.0-37.0); MEAN PLATELET VOLUME 9.8 fL (7.4-10.4); MONOCYTES 10.1 % (2-11); NEUTROPHILS 41.7 % (40-80); RBC 4.32 10x6/uL (4.00-5.40)
[2017-04-22 15:36] LABS: PLATELET COUNT 269 10x3/uL (130-400)
[2017-04-22 16:10] LABS: ALBUMIN 3.2 g/dL (3.4-5.0); BILIRUBIN - TOTAL 0.2 mg/dL (0.2-1.3); CALCIUM 8.8 mg/dL (8.5-10.1); CARBON DIOXIDE 21.7 mmol/L (21.0-32.0); PROTEIN - SERUM 8.2 g/dL (6.4-8.2)
[2017-04-22 16:16] LABS: ANION GAP 14.3 mmol/L (8-16)
[2017-04-22 16:50] LABS: ERYTHROCYTE SEDIMENTATION RATE 43 mm/hr (0-30)
== END | disposition home or self-care (01) ==
LOC: D.LABREF 14:38
PROVIDERS: Orthopaedic Surgery
DX: T84.59XA Infection and inflammatory reaction due to other internal joint prosthesis, initial encounter (principal)

== ENCOUNTER → 2017-05-24 14:23 | Outpatient (CLI) | payer MEDICAID ==
[2017-02-13 15:44] VITALS: BMI 36.4
[2017-05-24 14:43] LABS: C-REACTIVE PROTEIN < 0.2 mg/dL (0.0-0.9); CREATININE - SERUM 0.7 mg/dL (0.6-1.3); UREA NITROGEN 20 mg/dL (7-18)
[2017-05-24 15:04] LABS: BASOPHILS 0.4 % (0-2); EOSINOPHILS 2.1 % (0-7); HEMATOCRIT 40.2 % (36.0-48.0); HEMOGLOBIN 13.1 g/dL (12-16); LYMPHOCYTES 54.5 % (15-50); MCH 27.3 pg (26.0-34.0); MCHC 32.6 g/dL (31.0-37.0); MCV 83.8 fL (80.0-100.0); MEAN PLATELET VOLUME 9.8 fL (7.4-10.4); MONOCYTES 8.4 % (2-11); NEUTROPHILS 34.6 % (40-80); RDW 16.5 % (11.5-14.5); WBC 4.9 10x3/uL (4.8-10.8)
[2017-05-24 15:05] LABS: PLATELET COUNT 189 10x3/uL (130-400)
== END | disposition home or self-care (01) ==
LOC: D.LABREF 14:23
PROVIDERS: Student in an Organized Health Care Education/Training Program
DX: T84.59XA Infection and inflammatory reaction due to other internal joint prosthesis, initial encounter (principal); Z79.2 Long term (current) use of antibiotics

== ENCOUNTER → 2017-05-30 14:26 | Outpatient (CLI) | payer MEDICAID ==
[2017-02-13 15:44] VITALS: BMI 36.4
[2017-05-30 14:40] LABS: BASOPHILS 0.7 % (0-2); EOSINOPHILS 3.1 % (0-7); HEMATOCRIT 39.7 % (36.0-48.0); HEMOGLOBIN 13.2 g/dL (12-16); LYMPHOCYTES 45.5 % (15-50); MCH 27.4 pg (26.0-34.0); MCHC 33.2 g/dL (31.0-37.0); MCV 82.4 fL (80.0-100.0); NEUTROPHILS 38.7 % (40-80); PLATELET COUNT 189 10x3/uL (130-400); RBC 4.82 10x6/uL (4.00-5.40); RDW 16.4 % (11.5-14.5); WBC 5.5 10x3/uL (4.8-10.8)
[2017-05-30 14:47] LABS: UDS - AMPHET NEGATIVE QUAL (NEGATIVE); UDS - BARB NEGATIVE QUAL (NEGATIVE); UDS - BENZO NEGATIVE QUAL (NEGATIVE); UDS - COCAINE NEGATIVE QUAL (NEGATIVE); UDS - METH NEGATIVE QUAL (NEGATIVE); UDS - OPIATE NEGATIVE QUAL (NEGATIVE); UDS - PCP NEGATIVE QUAL (NEGATIVE); UDS - THC NEGATIVE QUAL (NEGATIVE)
[2017-05-30 15:07] LABS: ALBUMIN 3.5 g/dL (3.4-5.0); ALKALINE PHOSPHATASE 105 U/L (46-116); ALT (SGPT) 21 U/L (10-68); BILIRUBIN - TOTAL 0.21 mg/dL (0.2-1.3); CALC OSMOLALITY 276 mosm/kg (275-300); CALCIUM 8.8 mg/dL (8.5-10.1); CARBON DIOXIDE 22.3 mmol/L (21.0-32.0); CHLORIDE - SERUM 106 mmol/L (98-107); CREATININE - SERUM 0.8 mg/dL (0.6-1.3); GLUCOSE 74 mg/dL (74-106); POTASSIUM - SERUM 4.3 mmol/L (3.5-5.1); PROTEIN - SERUM 8.3 g/dL (6.4-8.2); SODIUM 138 mmol/L (136-145); UREA NITROGEN 19 mg/dL (7-18); eGFR NON AFRICAN AMERICAN 79 mL/min (90-120)
[2017-05-30 15:41] LABS: ERYTHROCYTE SEDIMENTATION RATE 16 mm/hr (0-30)
== END | disposition home or self-care (01) ==
LOC: D.LABREF 14:26
PROVIDERS: Nurse Practitioner Family
DX: T84.59XA Infection and inflammatory reaction due to other internal joint prosthesis, initial encounter (principal)

== ENCOUNTER → 2017-07-26 13:44 | Outpatient (CLI) | payer MEDICAID ==
[2017-02-13 15:44] VITALS: BMI 36.4
[2017-07-26 17:16] LABS: BASOPHILS 0.4 % (0-2); EOSINOPHILS 2.6 % (0-7); HEMATOCRIT 39.3 % (36.0-48.0); HEMOGLOBIN 13.2 g/dL (12-16); IMMATURE GRANULOCYTES 0.2 % (0-5); LYMPHOCYTES 31.6 % (15-50); MCH 29.1 pg (26.0-34.0); MCHC 33.6 g/dL (31.0-37.0); MCV 86.6 fL (80.0-100.0); MEAN PLATELET VOLUME 10.5 fL (7.4-10.4); MONOCYTES 8.1 % (2-11); NEUTROPHILS 57.1 % (40-80); PLATELET COUNT 183 10x3/uL (130-400); RBC 4.54 10x6/uL (4.00-5.40); RDW 17.5 % (11.5-14.5); WBC 5.1 10x3/uL (4.8-10.8)
[2017-07-26 17:17] LABS: UREA NITROGEN 17 mg/dL (7-18)
[2017-07-26 17:20] LABS: C-REACTIVE PROTEIN < 0.2 mg/dL (0.0-0.9)
[2017-07-26 18:27] LABS: ERYTHROCYTE SEDIMENTATION RATE 0 mm/hr (0-30)
== END | disposition home or self-care (01) ==
LOC: D.LABREF 13:44
PROVIDERS: Student in an Organized Health Care Education/Training Program
DX: Z51.81 Encounter for therapeutic drug level monitoring (principal); Z79.2 Long term (current) use of antibiotics; T84.53XD Infection and inflammatory reaction due to internal right knee prosthesis, subsequent encounter

== ENCOUNTER 2017-11-21 10:16 | Emergency (ER) | payer MEDICAID ==
[2017-02-13 15:44] VITALS: BMI 36.4
[2017-11-21 12:53] LABS: BASOPHILS 0.3 % (0-2); EOSINOPHILS 2.8 % (0-7); HEMATOCRIT 45.1 % (36.0-48.0); HEMOGLOBIN 15.1 g/dL (12-16); IMMATURE GRANULOCYTES 0.1 % (0-5); LYMPHOCYTES 35.9 % (15-50); MCH 29.9 pg (26.0-34.0); MCHC 33.5 g/dL (31.0-37.0); MCV 89.3 fL (80.0-100.0); MEAN PLATELET VOLUME 9.9 fL (7.4-10.4); MONOCYTES 10.9 % (2-11); PLATELET COUNT 161 10x3/uL (130-400); RBC 5.05 10x6/uL (4.00-5.40); RDW 14.3 % (11.5-14.5); WBC 6.9 10x3/uL (4.8-10.8)
[2017-11-21 13:05] LABS: ALBUMIN 3.7 g/dL (3.4-5.0); ANION GAP 13.1 mmol/L (8-16); BILIRUBIN - TOTAL 0.29 mg/dL (0.2-1.3); CALCIUM 9.1 mg/dL (8.5-10.1); CARBON DIOXIDE 26.9 mmol/L (21.0-32.0); PROTEIN - SERUM 7.8 g/dL (6.4-8.2)
== END 2017-11-21 14:22 | disposition home or self-care (01) ==
LOC: D.ER 10:16
PROVIDERS: Physician Assistant
DX: M25.462 Effusion, left knee (principal); Z98.890 Other specified postprocedural states

== ENCOUNTER 2017-12-16 06:30 | Inpatient (IN) | payer MEDICAID ==
[2017-12-13 16:40] LABS: APPEARANCE CLEAR (CLEAR); BILIRUBIN NEGATIVE (NEGATIVE); COLOR YELLOW (YELLOW); GLUCOSE NEGATIVE (NEGATIVE); KETONE NEGATIVE (NEGATIVE); NITRITE NEGATIVE (NEGATIVE); PROTEIN TRACE mg/dL (NEGATIVE); UROBILINOGEN NORMAL (NORMAL)
[2017-12-13 16:44] LABS: BASOPHILS 0.5 % (0-2); EOSINOPHILS 2.7 % (0-7); HEMATOCRIT 42.7 % (36.0-48.0); HEMOGLOBIN 14.4 g/dL (12-16); IMMATURE GRANULOCYTES 0.3 % (0-5); LYMPHOCYTES 34.5 % (15-50); MCHC 33.7 g/dL (31.0-37.0); MEAN PLATELET VOLUME 9.5 fL (7.4-10.4); PLATELET COUNT 193 10x3/uL (130-400); RDW 14.1 % (11.5-14.5)
[2017-12-13 16:49] LABS: BACTERIA FEW /hpf (NONE SEEN); EPITHELIAL CELLS 0-5 /hpf (0-5); RED CELLS - URINE OCC /hpf (0-5); WHITE CELLS - URINE 0-5 /hpf (0-5)
[2017-12-13 17:18] LABS: ANION GAP 14.4 mmol/L (8-16); CALCIUM 8.9 mg/dL (8.5-10.1); CARBON DIOXIDE 23.6 mmol/L (21.0-32.0); CREATININE - SERUM 1.1 mg/dL (0.6-1.3)
[2017-12-13 19:02] LABS: ERYTHROCYTE SEDIMENTATION RATE 20 mm/hr (0-30)
[~2017-12-16] VITALS: Ht 167.6 cm; Wt 90.5 kg
--- NOTE | ~2017-12-16 | OP ---
PATIENT NAME: SUZI SHAVER MEDICAL RECORD: [id number] :61 LOCATION:D.MS [facility] ADMISSION DATE:12/16/17 SURGEON: ALPESH MOYER MD DATE OF OPERATION: 12/16/2017 PREOPERATIVE DIAGNOSIS: Previously placed cement spacer - 9 months prior, now broken. POSTOPERATIVE DIAGNOSIS: Previously placed cement spacer - 9 months prior, now broken. PROCEDURES: 1. Removal of previously placed articulating cement spacer. 2. Complex revision total knee arthroplasty. SURGEON: Alpesh Moyer MD ANESTHESIA: General. INTRAOPERATIVE COMPLICATIONS: Essentially None. INTRAOPERATIVE FINDINGS: The patient had substantial bone loss requiring substantial augmentation on all parts of the knee. There was no evidence of infection. Intraoperative Gram stain was negative. The patient's preoperative inflammatory markers were all normal. HISTORY: The patient evidently had the knee put in a different position and that knee got infected and that knee was taken out and in lieu of a block spacer, an articulated spacer was put in. The other physician has since left town and the patient was somewhat lost to follow up and presented to my clinic ambulating with a broken cement spacer. OPERATIVE SUMMARY IN DETAIL: After obtaining the appropriate orthopedic surgical consent as well as consultation, evaluation, and clearance, the patient was brought to the operating room and placed on the operating table in supine position. After general laryngeal mask was administered, tourniquet was placed about the proximal aspect of the left lower extremity. Left lower extremity was then prepped and draped in routine sterile fashion. Leg was elevated, exsanguinated, and tourniquet was inflated to 350 mmHg. Previously utilized midline incision was utilized again, taken down. Patella was subluxed laterally. At this point, the articulating spacer came out in multiple fragments. The tibial spacer came out in 1 fragment. There was a substantial amount of bone loss. The entire vault of the proximal tibia had no cancellous bone. Bone loss on the femur was also substantial given the fact the patient had been walking on the broken articulated spacer. At this point, all soft tissue was cleared away to identify the bone edges. Several sequential reaming and broaching done on the proximal femur, to it placed size 18 x 150 fluted stem for the Triathlon system. Chamfer cuts were made after measurements were taken. Box cut was made after measurements were taken and a size 3 distal femur was chosen with augments on both distally and posterior, that being 5 distally medially and laterally and 5 distally posterior and 10 posteromedially and 10 distally posterolaterally. The trial was put into place and fit very snugly. This was left in place while the tibia was prepared. Again, reaming was performed for a tibial press fit fluted stem, 100 mm long. After several OPERATIVE REPORT [id number] SUZI SHAVER slight cuts of the proximal tibia, the patient required 5-mm augments on the both sides of the tibial baseplate. The trial was put together and the polyethylene insert trial was then utilized and it required a size 19 for stabilization, all trial components were taken out. The knee was copiously irrigated to remove all fragments. The components were assembled on the back field. The femur was both press fit and cemented into place, that is cemented distally and press fit intramedullary with good excellent fit and fill. The tibia having been assembled on the backtable was also press fit and cemented with excellent fit and fill. Polyethylene liner was put into place along with the post. The knee was held in extension while the cement was allowed to harden and it was then taken through range of motion and found to be stable in all planes. Wound was again copiously irrigated. Paramedian arthrotomy was closed with #2 Ethibond followed by #1 Vicryl, 2-0 Vicryl, and skin harvey. Sterile dressings were applied. The patient was awakened, extubated, and taken to the recovery room in stable condition. All final needle and sponge counts were correct. TRANSINT:[id number] Voice Confirmation ID: [id number] DOCUMENT ID: [id number] COMFORT CHANDRA, ALPESH COLLINS at 0827 CC: [id number] DICTATION DATE: 12/18/17 183 COMPONENT DESIGN ENGINEER: 12/18/17 2200 ADM IN [id number] [place] [address]
[2017-12-16 07:11] VITALS: BP 149/96; BMI 194.1
[2017-12-16 15:30] VITALS: BP 149/90
[2017-12-16 15:40] VITALS: BP 149/90; Ht 167.6 cm; Wt 90.5 kg
[2017-12-16 23:40] VITALS: BP 167/113
[2017-12-17 05:26] LABS: HEMATOCRIT 35.5 % (36.0-48.0); HEMOGLOBIN 11.6 g/dL (12-16); MCH 29.1 pg (26.0-34.0); MCHC 32.7 g/dL (31.0-37.0); MEAN PLATELET VOLUME 9.4 fL (7.4-10.4); RBC 3.99 10x6/uL (4.00-5.40); RDW 14.2 % (11.5-14.5); WBC 5.3 10x3/uL (4.8-10.8)
[2017-12-17 06:13] VITALS: BP 153/91
[2017-12-17 13:24] VITALS: BP 167/93
[2017-12-17 15:45] VITALS: BP 158/86
[2017-12-18 05:23] VITALS: BP 148/84
[2017-12-18 06:42] LABS: HEMATOCRIT 34.5 % (36.0-48.0); HEMOGLOBIN 11.4 g/dL (12-16); MCH 29.2 pg (26.0-34.0); MCV 88.2 fL (80.0-100.0); MEAN PLATELET VOLUME 9.6 fL (7.4-10.4); RBC 3.91 10x6/uL (4.00-5.40); RDW 13.6 % (11.5-14.5)
[2017-12-18 06:57] LABS: WBC 8.5 10x3/uL (4.8-10.8)
[2017-12-18 08:45] VITALS: BP 153/76
[2017-12-18 12:45] VITALS: BP 146/93
[2017-12-18 17:11] VITALS: BP 149/83
[2017-12-18 22:09] VITALS: BP 127/65
[2017-12-19 01:29] VITALS: BP 136/64
[2017-12-19 04:33] VITALS: BP 132/73
[2017-12-19 08:45] VITALS: BP 138/88
[2017-12-19 12:08] VITALS: BP 135/83
[2017-12-19 16:17] VITALS: BP 125/76
[2017-12-19 20:00] VITALS: BP 115/61
[2017-12-20 04:00] VITALS: BP 117/61
[2017-12-20 08:43] VITALS: BP 142/88
[2017-12-20] MEDS ORDERED: ELIQUIS2.5 MG PO (09:04)
[2017-12-20] MEDS ORDERED: HYDROCODONE-APA1 TAB PO (09:05)
[2017-12-20 12:46] VITALS: BP 122/69
== END 2017-12-20 17:11 | disposition home health service (06) | DRG 468 ==
LOC: D.MS 06:30 → D.SDCHOLD 06:30 → D.MS 14:49
PROVIDERS: Orthopaedic Surgery
PROC: 0SPD0JZ Removal of Synthetic Substitute from Left Knee Joint, Open Approach (ICD-10-PCS; 2017-12-16)
PROC: 0SPD08Z Removal of Spacer from Left Knee Joint, Open Approach (ICD-10-PCS; 2017-12-16)
PROC: 0SRD0JA Replacement of Left Knee Joint with Synthetic Substitute, Uncemented, Open Approach (ICD-10-PCS; principal; 2017-12-16 13:15)
DX: T84.54XA Infection and inflammatory reaction due to internal left knee prosthesis, initial encounter (principal); F41.9 Anxiety disorder, unspecified; F31.9 Bipolar disorder, unspecified; I10 Essential (primary) hypertension; J45.909 Unspecified asthma, uncomplicated; B18.2 Chronic viral hepatitis C; E11.65 Type 2 diabetes mellitus with hyperglycemia; F17.200 Nicotine dependence, unspecified, uncomplicated

== ENCOUNTER 2018-05-16 15:56 | Observation (INO) | payer MEDICAID ==
[~2018-05-16] VITALS: Ht 167.6 cm; Wt 97.7 kg
--- NOTE | ~2018-05-16 | MORECARE ---
CASE MANAGEMENT DISCHARGE SUMMARY PATIENT: SUZI SHAVER UNIT: [id number] ADM DATE: 05/16/18 AGE: 53 : 61 SEX: F [facility] AUTHOR: CASE, RN NEUROLOGY PHYSICIAN: REFERRING PHYSICIAN: FÉLIX ANDERSON MD DATE OF SERVICE: 05/16/18 Discharge Plan Patient Name: SUZI SHAVER [facility] : 1965 Planned Disposition: Home Anticipated Discharge Date: 05/19/18 Discharge Date: Expected LOS: 3 Initial Reviewer: [email or web address] Initial Review Date: 05/19/2018 Generated: 05/19/18 2:29 pm Patient Name: SUZI SHAVER Page [id number] All edits/amendments must be made on the electronic document DICTATION DATE: 05/19/18 1329 BOG WORKER: 05/19/18 1329 RPT#: [id number] MT DATE: STATUS: ADM IN [facility] [address] [place] [address] END OF REPORT
[2018-05-16 16:48] LABS: BASOPHILS 0.3 % (0-2); EOSINOPHILS 1.6 % (0-7); HEMOGLOBIN 14.7 g/dL (12-16); IMMATURE GRANULOCYTES 0.1 % (0-5); LYMPHOCYTES 30.7 % (15-50); MCH 28.8 pg (26.0-34.0); MCV 82.4 fL (80.0-100.0); MEAN PLATELET VOLUME 9.9 fL (7.4-10.4); MONOCYTES 12.5 % (2-11); NEUTROPHILS 54.8 % (40-80); PLATELET COUNT 166 10x3/uL (130-400); RDW 15.3 % (11.5-14.5); WBC 7.4 10x3/uL (4.8-10.8)
[2018-05-16 17:00] LABS: ALBUMIN 3.3 g/dL (3.4-5.0); ANION GAP 14.3 mmol/L (8-16); BILIRUBIN - TOTAL 0.46 mg/dL (0.2-1.3); CALCIUM 9.2 mg/dL (8.5-10.1); CARBON DIOXIDE 25.8 mmol/L (21.0-32.0); CREATININE - SERUM 1.3 mg/dL (0.6-1.3); POTASSIUM - SERUM 3.1 mmol/L (3.5-5.1); PROTEIN - SERUM 8.1 g/dL (6.4-8.2)
[2018-05-16 17:09] LABS: APPEARANCE CLEAR (CLEAR); BILIRUBIN NEGATIVE (NEGATIVE); COLOR DK YELLOW (YELLOW); GLUCOSE 1000 mg/dL (NEGATIVE); KETONE NEGATIVE (NEGATIVE); NITRITE NEGATIVE (NEGATIVE); PROTEIN 2+ mg/dL (NEGATIVE); SPECIFIC GRAVITY 1.025 (1.005-1.020); UROBILINOGEN NORMAL (NORMAL)
[2018-05-16 17:10] LABS: UDS - AMPHET NEGATIVE QUAL (NEGATIVE); UDS - BARB NEGATIVE QUAL (NEGATIVE); UDS - BENZO NEGATIVE QUAL (NEGATIVE); UDS - COCAINE POSITIVE QUAL (NEGATIVE); UDS - OPIATE NEGATIVE QUAL (NEGATIVE); UDS - PCP NEGATIVE QUAL (NEGATIVE); UDS - THC NEGATIVE QUAL (NEGATIVE)
[2018-05-16 17:12] LABS: BACTERIA FEW /hpf (NONE SEEN); EPITHELIAL CELLS 0-5 /hpf (0-5); RED CELLS - URINE 0-5 /hpf (0-5)
[2018-05-16 17:34] LABS: CKMB 0.9 U/L (0.0-3.6); CREATINE KINASE 125 UL (21-215); TROPONIN-I < 0.017 ng/mL (0.000-0.060)
[2018-05-16 21:28] LABS: CKMB 1.4 U/L (0.0-3.6)
[2018-05-16 21:30] LABS: CREATINE KINASE 235 UL (21-215)
[2018-05-16 21:31] LABS: TROPONIN-I 0.067 ng/mL (0.000-0.060)
[2018-05-16 21:50] VITALS: BP 222/132
[2018-05-17 00:19] VITALS: BP 190/105
[2018-05-17 04:44] VITALS: BP 207/96
[2018-05-17 07:34] LABS: ANION GAP 11.9 mmol/L (8-16); CALCIUM 8.7 mg/dL (8.5-10.1); CARBON DIOXIDE 25.3 mmol/L (21.0-32.0); POTASSIUM - SERUM 3.2 mmol/L (3.5-5.1)
[2018-05-17 08:10] LABS: BASOPHILS 0.3 % (0-2); EOSINOPHILS 1.9 % (0-7); HEMATOCRIT 38.9 % (36.0-48.0); HEMOGLOBIN 13.7 g/dL (12-16); IMMATURE GRANULOCYTES 0.1 % (0-5); LYMPHOCYTES 32.1 % (15-50); MCH 28.7 pg (26.0-34.0); MCHC 35.2 g/dL (31.0-37.0); MCV 81.6 fL (80.0-100.0); MEAN PLATELET VOLUME 9.5 fL (7.4-10.4); MONOCYTES 9.4 % (2-11); NEUTROPHILS 56.2 % (40-80); PLATELET COUNT 147 10x3/uL (130-400); RBC 4.77 10x6/uL (4.00-5.40); RDW 15.2 % (11.5-14.5); WBC 7.5 10x3/uL (4.8-10.8)
[2018-05-17 08:30] VITALS: BP 177/106
[2018-05-17 09:00] LABS: CKMB 0.7 U/L (0.0-3.6); CREATINE KINASE 152 UL (21-215)
[2018-05-17 10:56] VITALS: Ht 167.6 cm; Wt 97.7 kg
[2018-05-17 11:36] VITALS: BP 221/101
[2018-05-17 15:26] VITALS: BP 139/88
[2018-05-17 20:57] VITALS: BP 118/73
[2018-05-18 02:09] VITALS: BP 79/49
[2018-05-18 06:26] VITALS: BP 79/44
[2018-05-18 08:23] VITALS: BP 114/76
[2018-05-18 11:41] VITALS: BP 108/77
[2018-05-18 16:11] VITALS: BP 132/7
[2018-05-18 21:07] VITALS: BP 116/71
[2018-05-19 01:16] VITALS: BP 132/81
[2018-05-19 05:10] VITALS: BP 132/82
[2018-05-19 06:57] LABS: BASOPHILS 0.3 % (0-2); EOSINOPHILS 2.2 % (0-7); HEMATOCRIT 36.6 % (36.0-48.0); HEMOGLOBIN 12.4 g/dL (12-16); IMMATURE GRANULOCYTES 0.2 % (0-5); MCH 27.7 pg (26.0-34.0); MCHC 33.9 g/dL (31.0-37.0); MCV 81.9 fL (80.0-100.0); MEAN PLATELET VOLUME 10.1 fL (7.4-10.4); MONOCYTES 10.5 % (2-11); NEUTROPHILS 39.8 % (40-80); PLATELET COUNT 149 10x3/uL (130-400); RBC 4.47 10x6/uL (4.00-5.40); RDW 15.3 % (11.5-14.5); WBC 5.8 10x3/uL (4.8-10.8)
[2018-05-19 07:18] LABS: ANION GAP 11.2 mmol/L (8-16); CARBON DIOXIDE 27.2 mmol/L (21.0-32.0); CREATININE - SERUM 1.2 mg/dL (0.6-1.3); POTASSIUM - SERUM 3.4 mmol/L (3.5-5.1)
[2018-05-19] MEDS ORDERED: CATAPRES0.2 MG PO (10:08)
[2018-05-19] MEDS ORDERED: ZESTRIL40 MG PO (10:08)
== END 2018-05-19 14:20 | disposition home or self-care (01) ==
LOC: D.ER 15:56 → D.M2 19:10 → OBSVTIME 19:10 → D.EDHOLD 19:10 → D.M2 21:04
PROVIDERS: Family Medicine; Internal Medicine Nephrology
DX: G93.41 Metabolic encephalopathy (principal); E87.6 Hypokalemia; F14.10 Cocaine abuse, uncomplicated; F17.213 Nicotine dependence, cigarettes, with withdrawal; F20.9 Schizophrenia, unspecified; F41.8 Other specified anxiety disorders; B19.20 Unspecified viral hepatitis C without hepatic coma; I10 Essential (primary) hypertension; E11.65 Type 2 diabetes mellitus with hyperglycemia; G40.909 Epilepsy, unspecified, not intractable, without status epilepticus

== ENCOUNTER 2018-09-20 17:12 | Emergency (ER) | payer MEDICAID | END 2018-09-20 18:16 | disposition home or self-care (01) | LOC: D.ER 17:12 | DX: M17.11 Unilateral primary osteoarthritis, right knee (principal); E11.9 Type 2 diabetes mellitus without complications; I10 Essential (primary) hypertension; F17.200 Nicotine dependence, unspecified, uncomplicated ==

== ENCOUNTER 2018-12-05 09:25 | Emergency (ER) | payer MEDICAID ==
[~2018-12-05] VITALS: Ht 167.6 cm; Wt 106.4 kg
[~2018-12-05 09:25] MED LIST changes: +CATAPRES0.2 MG PO; +TYLENOL W/CODEI1 TAB PO
[2018-12-05 09:30] VITALS: Ht 167.6 cm; Wt 106.4 kg
[2018-12-05] MEDS ORDERED: ZOLOFT50 MG PO (09:32)
[2018-12-05] MEDS ORDERED: LANTUS INSULIN10 ML SC (09:32)
[2018-12-05] MEDS ORDERED: IBUPROFEN800 MG PO (10:29)
[2018-12-05 10:50] VITALS: BP 164/90
== END 2018-12-05 10:51 | disposition home or self-care (01) ==
LOC: D.ER 09:25
DX: S60.222A Contusion of left hand, initial encounter (principal); W03.XXXA Other fall on same level due to collision with another person, initial encounter; Y93.89 Activity, other specified; Y92.019 Unspecified place in single-family (private) house as the place of occurrence of the external cause; M79.642 Pain in left hand; F17.200 Nicotine dependence, unspecified, uncomplicated; E11.9 Type 2 diabetes mellitus without complications; Z79.4 Long term (current) use of insulin; I10 Essential (primary) hypertension

== ENCOUNTER 2018-12-10 10:11 | Inpatient (IN) | payer MEDICAID ==
[~2018-12-10] VITALS: Ht 167.6 cm; Wt 106.4 kg
--- NOTE | ~2018-12-10 | OP ---
PATIENT NAME: SUZI SHAVER MEDICAL RECORD: [id number] :61 LOCATION:D[facility] ADMISSION DATE:12/10/18 SURGEON: JEANCARLOS SOLER MD DATE OF OPERATION: 12/13/2018 PREOPERATIVE DIAGNOSES: 1. Need for IV access. 2. MRSA. 3. Left hand cellulitis/abscess. 4. Diabetes mellitus. 5. Bipolar disorder. 6. Schizophrenia. POSTOPERATIVE DIAGNOSES: 1. Need for IV access. 2. MRSA. 3. Left hand cellulitis/abscess. 4. Diabetes mellitus. 5. Bipolar disorder. 6. Schizophrenia. PROCEDURE: Right subclavian vein triple-lumen central venous line placement. SURGEON: Jeancarlos Soler MD REPORT OF PROCEDURE: The patient's right chest was prepped and draped in sterile fashion, 5 cc of 1% lidocaine was infused into the subcutaneous tissues. A needle was used to cannulate the right subclavian vein and a guidewire was advanced with ease. A dilator was placed over the wire followed by the triple lumen catheter. The catheter aspirated nonpulsatile dark blood and flushed easily in all 3 ports. This was sutured into place with 3-0 silk ties and dressed appropriately. COMPLICATIONS: None. CONDITION: Stable. ANESTHESIA: Local. BLOOD LOSS: Minimal. Procedure done at the bedside. TRANSINT:[id number] Voice Confirmation ID: [id number] DOCUMENT ID: [id number] JEANCARLOS SOLER MD CC: [id number] DICTATION DATE: 12/13/18 1627 WOOL HAT HYDRAULICKER: 12/14/18 0013 ADM IN [place] [id number] [place] [address]
[~2018-12-10 10:11] MED LIST changes: +IBUPROFEN800 MG PO; +LANTUS INSULIN10 ML SC; +ZOLOFT50 MG PO
[2018-12-10 11:01] LABS: BASOPHILS 0.2 % (0-2); EOSINOPHILS 0.1 % (0-7); HEMATOCRIT 40.6 % (36.0-48.0); HEMOGLOBIN 14.5 g/dL (12-16); IMMATURE GRANULOCYTES 0.3 % (0-5); LYMPHOCYTES 12.2 % (15-50); MCHC 35.7 g/dL (31.0-37.0); MCV 83.9 fL (80.0-100.0); MEAN PLATELET VOLUME 9.8 fL (7.4-10.4); MONOCYTES 13.7 % (2-11); NEUTROPHILS 73.5 % (40-80); PLATELET COUNT 244 10x3/uL (130-400); RBC 4.84 10x6/uL (4.00-5.40); RDW 12.4 % (11.5-14.5); WBC 19.8 10x3/uL (4.8-10.8)
[2018-12-10 11:22] LABS: ALBUMIN 3.2 g/dL (3.4-5.0); ANION GAP 16.3 mmol/L (8-16); BILIRUBIN - TOTAL 1.1 mg/dL (0.2-1.3); CALCIUM 9.6 mg/dL (8.5-10.1); CARBON DIOXIDE 24.5 mmol/L (21.0-32.0); CREATININE - SERUM 1.2 mg/dL (0.6-1.3); POTASSIUM - SERUM 3.8 mmol/L (3.5-5.1); PROTEIN - SERUM 8.7 g/dL (6.4-8.2)
--- NOTE | 2018-12-10 11:31 | NUR ---
CRITICAL LAB FSBS 464 CALLED FROM [place] AT THIS TIME. NOTIFIED EDM
[2018-12-10 18:46] VITALS: BMI 37.8
--- NOTE | 2018-12-10 19:30 | NUR ---
PT AAOX4. PT LEFT HAND SWOLLEN WITH BLISTERS NOTED. PT STATES PAIN TO LEFT HAND. RATES PAIN 4/10. LEFT FOREARM IV WITH NS @ 100 INFUSING. IV IS PATENT. NO REDNESS NOTED. PT DOES NOT REPORT ANY STINGING OR BURNING DURING INFUSION. PT REPORTS NO DISTRESS AT THIS TIME. CALL LIGHT IN HAND. VERBALIZES HOW TO USE.
[2018-12-10 20:00] VITALS: BP 159/102; BP 161/90
--- NOTE | 2018-12-10 21:24 | NUR ---
EYES CLOSED RESPIRATIONS WITH EASE AND UNLABORED. SR UP X2 CALL LIGHT WITHIN REACH.
--- NOTE | 2018-12-10 22:30 | NUR ---
FSBS READ "HI". RECHECKED WITH DIFFERENT GLUCOMETER 492. SPOKE WITH CHARGE NURSE. INSULIN ORDER CHANGED FROM LOW TO INTERMEDIATE SCALE AT 1930. CHARGE NURSE INSTRUCTED TO ADMINISTER ACCORDING TO SLIDING SCALE WELL SCHEDULED LANTUS AND THEN RECHECK BETWEEN ADMINISTERING AND MIDNIGHT. PT TOLERATED HS MEDICATIONS WELL. NO COMPLAINTS AT THIS TIME.
--- NOTE | 2018-12-10 23:38 | NUR ---
HAT IN BATHROOM. SPOKE WITH PT ABOUT OBTAINING URINE SAMPLE AND TO CALL THIS NURSE AFTER NEXT VOID.
[2018-12-11] VITALS: BP 128/72; BP 149/98
--- NOTE | 2018-12-11 01:37 | NUR ---
PT FEVER 101.4. ADMINISTERED NORCO 7.5.
[2018-12-11 04:00] VITALS: BP 109/79
--- NOTE | 2018-12-11 04:09 | NUR ---
STILL ATTEMPTING TO OBTAIN URINE SAMPLE PER DR. ANDERSON ORDER. PT STATES "I DONT HAVE TO RIGHT NOW." CONSENTS SIGNED, WITNESSED, AND IN CHART.
[2018-12-11 04:52] LABS: BASOPHILS 0.2 % (0-2); EOSINOPHILS 0.3 % (0-7); HEMATOCRIT 35.6 % (36.0-48.0); HEMOGLOBIN 12.3 g/dL (12-16); IMMATURE GRANULOCYTES 0.3 % (0-5); LYMPHOCYTES 16.8 % (15-50); MCH 29.1 pg (26.0-34.0); MCHC 34.6 g/dL (31.0-37.0); MCV 84.4 fL (80.0-100.0); MEAN PLATELET VOLUME 9.6 fL (7.4-10.4); NEUTROPHILS 66.4 % (40-80); PLATELET COUNT 235 10x3/uL (130-400); RBC 4.22 10x6/uL (4.00-5.40); RDW 12.4 % (11.5-14.5); WBC 17.3 10x3/uL (4.8-10.8)
[2018-12-11 05:13] LABS: ANION GAP 11.7 mmol/L (8-16); CALCIUM 8.8 mg/dL (8.5-10.1); CREATININE - SERUM 1.2 mg/dL (0.6-1.3); POTASSIUM - SERUM 3.7 mmol/L (3.5-5.1)
--- NOTE | 2018-12-11 05:37 | NUR ---
URINE SAMPLE FOR UA AND UDS COLLECTED AND DELIVERED TO LAB.
--- NOTE | 2018-12-11 05:55 | NUR ---
PT UNDRESSING SELF SEVERAL TIMES. REDRESSED PATIENT. PT STATED PAIN TO LEFT HAND. ADMINISTERED MORPHINE PER ORDER. FSBS 171. SEE MAR FOR INSULIN AMOUNTS AT HS. PT IS CURRENTLY NPO AND AWAITING SURGERY. CONSULTED CHARGE NURSE AND AGREED NOT TO TREAT BLOOD SUGAR AT THIS TIME TO PREVENT DROP IN SUGAR.
[2018-12-11 06:10] LABS: UDS - AMPHET NEGATIVE QUAL (NEGATIVE); UDS - BARB NEGATIVE QUAL (NEGATIVE); UDS - BENZO NEGATIVE QUAL (NEGATIVE); UDS - COCAINE NEGATIVE QUAL (NEGATIVE); UDS - OPIATE POSITIVE QUAL (NEGATIVE); UDS - PCP NEGATIVE QUAL (NEGATIVE); UDS - THC NEGATIVE QUAL (NEGATIVE)
[2018-12-11 06:30] LABS: APPEARANCE HAZY (CLEAR); BILIRUBIN NEGATIVE (NEGATIVE); COLOR DK YELLOW (YELLOW); GLUCOSE 1000 mg/dL (NEGATIVE); KETONE NEGATIVE (NEGATIVE); NITRITE NEGATIVE (NEGATIVE); PROTEIN TRACE mg/dL (NEGATIVE); WHITE CELLS - URINE 0-5 /hpf (0-5)
[2018-12-11 06:32] LABS: BACTERIA MODERATE /hpf (NONE SEEN); EPITHELIAL CELLS 0-5 /hpf (0-5); MUCUS <1+ /lpf (NONE SEEN); RED CELLS - URINE 0-5 /hpf (0-5)
--- NOTE | 2018-12-11 07:38 | NUR ---
PT IS RESTING IN BED WITH EYES CLOSED. RESPIRATIONS ARE EVEN AND UNLABORED. PT IS EASILY AROUSED WITH VERBAL STIMULATION. PT IS MOUTH BREATHING. EDEMA AND WARMTH NOTED TO RIGHT HAND. PT REPORTS PAIN 10/10 WITH MOVEMENT. PT IS ORIENTED X 4. BED IS IN THE LOWEST POSITION. CALL LIGHT AND BEDSIDE TABLE ARE WITHIN REACH. WILL CONT TO MONITOR.
[2018-12-11 09:18] VITALS: BP 139/84
[2018-12-11 09:57] VITALS: BP 155/99
--- NOTE | 2018-12-11 09:59 | NUR ---
ANTIHYPERTENSIVE MEDICATION GIVEN PO WITH SIPS OF WATER.
--- NOTE | 2018-12-11 10:28 | NUR ---
PT IS OFF FLOOR FOR PROCEDURE
[2018-12-11 12:23] VITALS: BP 120/81
--- NOTE | 2018-12-11 12:26 | NUR ---
PT RETURNS TO ROOM FROM PROCEDURE VIA BED WITH PACU STAFF. VSS STABLE. SEE FREQUENT VITALS SHEET AND POST OP VITALS. FAMILY IS AT BEDSIDE. WILL PLACE PT IS PRECAUTIONARY ISOLATION FOR POSSIBLE MRSA IN LEFT HAND. SCDS ARE ON. PT RESPIRATIONS ARE EVEN AND UNLABORED. PT IS EASILY AROUSED WITH VERBAL STIMULATION. PT DENIES PRESENCE OF NAUSE AND VOMITING AND PAIN AT THIS TIME. BED IS IN THE LOWEST POSITION. CALL LIGHT AND BEDSIDE TABLE ARE WITHIN REACH. WILL TURN ON BED ALARM UNTIL PT IS FULLY ALERT. WILL CONT TO MONITOR.
--- NOTE | 2018-12-11 13:24 | NUR ---
NOTED THAT PATIENT HAS A PERIPHERAL IV IN HER AFFECTED ARM (LEFT FA) IN CLOSE PROXIMITY TO ABSCESS. PATIENT'S LEFT ARM IS RED, HOT TO TOUCH, AND SWOLLEN FROM HER HAND ALL THE WAY UP TO HER UPPER ARM. PIV REMOVED AND PLACED IN HER RIGHT HAND. DR. LOYOLA NOTIFIED.
--- NOTE | 2018-12-11 13:26 | NUR ---
NOTED THAT DRAINAGE FROM PATIENT'S LEFT HAND ABSCESS HAS A STRONG PUNGENT ODOR. CULTURES SENT PER DR. LOYOLA'S INSTRUCTIONS.
--- NOTE | 2018-12-11 15:00 | MORECARE ---
CASE MANAGEMENT DISCHARGE SUMMARY PATIENT: SUZI SHAVER UNIT: [id number] ADM DATE: 12/10/18 AGE: 53 : 61 SEX: F ROOM/BED: D.2230 AUTHOR: MOHINI ISRAEL PHYSICIAN: REFERRING PHYSICIAN: FÉLIX ANDERSON MD DATE OF SERVICE: 12/11/18 Discharge Plan Patient Name: SUZI SHAVER Facility: [facility]:[place] : 1965 Planned Disposition: Anticipated Discharge Date: Discharge Date: Expected LOS: Initial Reviewer: [id number] Initial Review Date: 12/10/2018 Generated: 12/11/18 4:00 pm Comments DCP- Discharge Planning Updated by [email or web address]: Rola Edmond on 12/11/18 1:[address] attempted to see patient and she was sleeping, will try again at a later time Patient Name: SUZI SHAVER Page [id number] at 1500 All edits/amendments must be made on the electronic document DICTATION DATE: 12/11/18 1500 PHARMACY STUDENT: MIN 12/11/18 1500 RPT#: [id number] [place] DATE: STATUS: ADM IN [facility] [address] [place] [address] END OF REPORT
[2018-12-11 15:45] VITALS: Ht 167.6 cm; Wt 106.4 kg
[2018-12-11 17:09] VITALS: BP 142/90
--- NOTE | 2018-12-11 20:00 | NUR ---
ALERT RESTING IN BED RESP UNLABORED NIMESH WRAP IN PLACE TO LEFT HAND AND FOREARM EDEMA NOTED TO FINGERS ABLE TO MOVE FINGERS GOOD CAPILLARY REFILL, NOT SPEAKING AT THIS TIME BUT WILL FOLLOW SOME COMANDS, NO APPARENT DISTRESS CALL LIGHT IN REACH
--- NOTE | 2018-12-12 02:16 | NUR ---
AWAKE C/O IV SITE HURTING OBSERVED TO BE SWOLLEN DC,D ADN RESITED TO RIGHT FOREARM X 1 ATTEMPT 20G TOLERATED WELL INCONTIENT OF URINE PADS CHANGED, TALKING APPROIATELY AT THIS TIME
[2018-12-12 04:00] VITALS: BP 129/71
[2018-12-12 08:31] VITALS: BP 118/72
[2018-12-12 08:59] LABS: CALCIUM 8.2 mg/dL (8.5-10.1); CREATININE - SERUM 1.3 mg/dL (0.6-1.3)
[2018-12-12 09:00] LABS: ANION GAP 18.7 mmol/L (8-16); CARBON DIOXIDE 18.3 mmol/L (21.0-32.0)
[2018-12-12 12:09] VITALS: BP 122/71
--- NOTE | 2018-12-12 12:30 | NUR ---
PATIENT RESTING COMFORTABLY. NO SIGNS OF DISTRESS OR COMPLAINTS. ALL NEEDS MET AT THIS TIME.
[2018-12-12 12:56] LABS: BASOPHILS 0.3 % (0-2); EOSINOPHILS 1.7 % (0-7); HEMATOCRIT 34.4 % (36.0-48.0); HEMOGLOBIN 11.4 g/dL (12-16); IMMATURE GRANULOCYTES 0.5 % (0-5); LYMPHOCYTES 20.8 % (15-50); MCH 28.9 pg (26.0-34.0); MCHC 33.1 g/dL (31.0-37.0); MEAN PLATELET VOLUME 10.3 fL (7.4-10.4); MONOCYTES 16.4 % (2-11); NEUTROPHILS 60.3 % (40-80); PLATELET COUNT 207 10x3/uL (130-400); RBC 3.94 10x6/uL (4.00-5.40); RDW 13.1 % (11.5-14.5)
[2018-12-12 13:03] LABS: MCV 87.3 fL (80.0-100.0); WBC 11.7 10x3/uL (4.8-10.8)
--- NOTE | 2018-12-12 15:12 | NUR ---
I have reviewed this patient and I concur with the Shift Assessment completed by the Licensed Practical Nurse today this shift.
[2018-12-12 15:35] VITALS: BP 140/80
--- NOTE | 2018-12-12 16:25 | MORECARE ---
CASE MANAGEMENT DISCHARGE SUMMARY PATIENT: SUZI SHAVER UNIT: [id number] ADM DATE: 12/10/18 AGE: 53 : 61 SEX: F ROOM/BED: D.2230 AUTHOR: MOHINI ISRAEL PHYSICIAN: REFERRING PHYSICIAN: FÉLIX ANDERSON MD DATE OF SERVICE: 12/12/18 Discharge Plan Patient Name: SUZI SHAVER [facility] [facility] 1965 Planned Disposition: Home Anticipated Discharge Date: Discharge Date: Expected LOS: Initial Reviewer: [email or web address] Initial Review Date: 12/10/2018 Generated: 12/12/18 5:24 pm Comments DCP- Discharge Planning Updated by [email or web address]: Rola Edmond on 12/11/18 1:[address] attempted to see patient and she was sleeping, will try again at a later time DCPIA - Discharge Planning Initial Assessment Updated by [email or web address]: Tracy Jj on 12/12/18 4:24 pm * Is the patient Alert and Oriented? Yes * How many steps to enter\exit or inside your home? 1 flight/0 * PCP [facility] ([place]) * [facility] [address] * Preadmission Environment Home Alone * ADLs Independent * Equipment Cane Glucometer Wheelchair * List name and contact numbers for known caregivers / representatives who currently or will assist patient after discharge: Abena Moseley [email or web address] - [phone] * Verbal permission to speak to the caregivers and representatives has been obtained from the patient. Yes * Community resources currently utilized None * Additional services required to return to the preadmission environment? Yes * Can the patient safely return to the preadmission environment? Yes * Has this patient been hospitalized within the prior 30 days at any hospital? No Last DP export: 12/11/18 2:00 p Patient Name: SUZI SHAVER Page 40807 at 1626 All edits/amendments must be made on the electronic document DICTATION DATE: 12/12/181623 LEARNING SUPPORT RESOURCE ROOM TEACHER: MIN 12/12/181623 RPT#: [id number] DC DATE: STATUS: ADM IN [facility] [address] [facility] [place] [address] END OF REPORT
--- NOTE | 2018-12-12 16:32 | MORECARE ---
CASE MANAGEMENT DISCHARGE SUMMARY PATIENT: SUZI SHAVER UNIT: [id number] ADM DATE: 12/10/18 AGE: 53 : 61 SEX: F ROOM/BED: D.2230 AUTHOR: LINDY,DOC PHYSICIAN: REFERRING PHYSICIAN: FÉLIX ANDERSON MD DATE OF SERVICE: 12/12/18 Discharge Plan Patient Name: SUZI SHAVER Facility: [facility]:[place] : 1965 Planned Disposition: Home Anticipated Discharge Date: Discharge Date: Expected LOS: Initial Reviewer: [email or web address] Initial Review Date: 12/10/2018 Generated: 12/12/18 5:32 pm Comments DCP- Discharge Planning Updated by [email or web address]: Tracy Jj on 12/12/18 3:[address] Patient Name: SUZI SHAVER Admission Status: ER Accout number: [id number] Admission Date: 12-10-2018 : 1965 Admission Diagnosis:CELLULITIS OF LEFT UPPER LIMB Attending: FÉLIX ANDERSON Current LOS: 2 Anticipated DC Date: Planned Disposition: Home Primary Insurance: MEDICAID [place] Discharge Planning Comments: CM met with patient to complete initial dc planning assessment. CM educated patient on the CM role and verbal consent given by patient to complete assessment. Patient lives alone at home. At discharge patient plans to return and feels this is a safe discharge. CM discussed availability of home health, rehab services, and medical equipment. Patient denied known discharge needs at this time. States she is independent with all ADL's, she does not drive but her mother drives her where she needs to go. She states her mother will take her home. CM will continue to follow and will assist as needed with dc plans/needs. Emblem Drawer In: Tracy Jj DCP- Discharge Planning Updated by [id number]: Rola Edmond on 12/11/18 1:[address] attempted to see patient and she was sleeping, will try again at a later time DCPIA - Discharge Planning Initial Assessment Updated by [email or web address]: Tracy Jj on 12/12/18 4:24 pm * Is the patient Alert and Oriented? Yes * How many steps to enter\exit or inside your home? 1 flight/0 * PCP [facility] ([place]) * Pharmacy [facility] [address] * Preadmission Environment Home Alone * ADLs Independent * Equipment Cane Glucometer Wheelchair * List name and contact numbers for known caregivers / representatives who currently or will assist patient after discharge: Abena Moseley - mother - [phone] * Verbal permission to speak to the caregivers and representatives has been obtained from the patient. Yes * Community resources currently utilized None * Additional services required to return to the preadmission environment? Yes * Can the patient safely return to the preadmission environment? Yes * Has this patient been hospitalized within the prior 30 days at any hospital? No Last DP export: 12/12/18 3:24 pm Patient Name: SUZI SHAVER Page 63349 at 1632 All edits/amendments must be made on the electronic document DICTATION DATE: 12/12/18 163 SURGERY TEACHER: MIN 12/12/18 163 RPT#: [id number] DC DATE: STATUS: ADM IN [facility] [address] [place] [address] END OF REPORT
--- NOTE | 2018-12-12 17:32 | NUR ---
OT NOTE: PT COMPLETED BED MOB WITH SBA . PT COMPLETED STANDING WITH SIDE STEPPING WITH CGA. PT COMPLETED HYGIENE TASK WITH SET UP. PT COMPLETED RUE AROM EXS. THANK YOU, DAVID FREEMAN
--- NOTE | 2018-12-12 19:15 | NUR ---
RECEIVED CARE FROM DAY NURSE. LYING IN BED ON SIDE. EYES CLOSED. RESP EVEN AND UNLABORED. IV INFUSING PER ORDER TO LEFT FA. CALL LIGHT AT SIDE.
[2018-12-12 20:08] VITALS: BP 100/45
[2018-12-13 00:46] VITALS: BP 119/50
--- NOTE | 2018-12-13 01:41 | NUR ---
I have reviewed this patient and I concur with the Shift Assessment completed by the Licensed Practical Nurse today this shift.
[2018-12-13 05:54] LABS: BASOPHILS 0.3 % (0-2); EOSINOPHILS 0.7 % (0-7); HEMATOCRIT 32.3 % (36.0-48.0); IMMATURE GRANULOCYTES 0.4 % (0-5); LYMPHOCYTES 16.2 % (15-50); MCH 29.2 pg (26.0-34.0); MCHC 34.1 g/dL (31.0-37.0); MCV 85.7 fL (80.0-100.0); MEAN PLATELET VOLUME 9.4 fL (7.4-10.4); MONOCYTES 16.2 % (2-11); NEUTROPHILS 66.2 % (40-80); PLATELET COUNT 229 10x3/uL (130-400); RBC 3.77 10x6/uL (4.00-5.40); WBC 11.4 10x3/uL (4.8-10.8)
[2018-12-13 06:08] VITALS: BP 137/76
[2018-12-13 06:32] LABS: ALBUMIN 1.9 g/dL (3.4-5.0); ANION GAP 13.5 mmol/L (8-16); BILIRUBIN - TOTAL 0.28 mg/dL (0.2-1.3); CALCIUM 8.1 mg/dL (8.5-10.1); CARBON DIOXIDE 22.8 mmol/L (21.0-32.0); POTASSIUM - SERUM 4.3 mmol/L (3.5-5.1); PROTEIN - SERUM 6.5 g/dL (6.4-8.2)
--- NOTE | 2018-12-13 08:05 | NUR ---
PT RESTING IN BED WITH LEFT ARM ELEVATED ON PILLOW. NIMESH BANDAGE INTACT TO LEFT HAND. REPORTS PAIN 9/10 AT THIS TIME. PAIN MED TO BE ADMINISTERED PER MD ORDERS. IV TO RIGHT FOREARM WITH NS @ 50ML/HR INFUSING VIA PUMP. DENIES FURTHER NEEDS AT THIS TIME. CL WITHIN REACH. ENCOURAGED TO CALL WITH NEEDS. CONTINUE POC
[2018-12-13 08:08] VITALS: BP 143/82
--- NOTE | 2018-12-13 10:00 | NUR ---
PT RESTING IN BED WATCHING TV. NO ACUTE DISTRESS. REPORTS PAIN AT THIS TIME 03/23. DENIES FURTHER NEEDS AT THIS TIME. CL WITHIN REACH
[2018-12-13 16:31] VITALS: BP 185/79
--- NOTE | 2018-12-13 19:30 | NUR ---
RECEIVED REPORT, ASSUMED CARE, NO S/S OF DISTRESS NOTED, CALL LIGHT IN REACH, BED LOWEST POSITION, WILL CONTINUE POC
[2018-12-13 20:01] VITALS: BP 168/77
[2018-12-14 02:28] VITALS: BP 112/68
[2018-12-14 04:09] VITALS: BP 118/60
--- NOTE | 2018-12-14 04:48 | NUR ---
I have reviewed this patient and I concur with the Shift Assessment completed by the Licensed Practical Nurse today this shift.
[2018-12-14 06:33] LABS: BASOPHILS 0.1 % (0-2); EOSINOPHILS 0.8 % (0-7); HEMOGLOBIN 10.2 g/dL (12-16); IMMATURE GRANULOCYTES 0.5 % (0-5); LYMPHOCYTES 14.1 % (15-50); MCH 28.8 pg (26.0-34.0); MCV 84.7 fL (80.0-100.0); MEAN PLATELET VOLUME 9.1 fL (7.4-10.4); MONOCYTES 16.3 % (2-11); NEUTROPHILS 68.2 % (40-80); PLATELET COUNT 236 10x3/uL (130-400); RBC 3.54 10x6/uL (4.00-5.40); RDW 12.8 % (11.5-14.5); WBC 11.1 10x3/uL (4.8-10.8)
[2018-12-14 07:11] LABS: ALBUMIN 2.1 g/dL (3.4-5.0); ANION GAP 11.4 mmol/L (8-16); BILIRUBIN - TOTAL 0.53 mg/dL (0.2-1.3); CARBON DIOXIDE 25.3 mmol/L (21.0-32.0); CREATININE - SERUM 0.9 mg/dL (0.6-1.3); POTASSIUM - SERUM 3.7 mmol/L (3.5-5.1); PROTEIN - SERUM 6.5 g/dL (6.4-8.2)
[2018-12-14 08:32] VITALS: BP 168/94
[2018-12-14 12:48] VITALS: BP 124/74
[2018-12-14 17:16] VITALS: BP 159/99
--- NOTE | 2018-12-14 20:00 | NUR ---
RESTING IN BED RESP UNLABOARED IV INFUSING WITHOUT DIFFICULTY, REPORTS PAIN DUE TO DRESSING CHANGE , HAS RECIEVED PAIN MEDICATION, CALL NORY SAGASTUME
--- NOTE | 2018-12-14 20:03 | NUR ---
PATIENT DRESSING CHANGED. THERE WAS A FEW TIMES OF THE PROCEDURE SHE WAS IN SOME PAIN. DRESSING REMOVED HAD PURULENT DRAINAGE. ONE SPOT OF A DARK BROWN COLOR IN THE SMALLER INCISION. PACKING, 4*4, KERLEX, AND NIMESH WRAP APPLIED
[2018-12-14 20:23] VITALS: BP 138/65
[2018-12-15 00:18] VITALS: BP 163/97
[2018-12-15 04:27] VITALS: BP 150/60
[2018-12-15 07:04] LABS: HEMATOCRIT 28.7 % (36.0-48.0); HEMOGLOBIN 9.6 g/dL (12-16); MCH 28.6 pg (26.0-34.0); MCHC 33.4 g/dL (31.0-37.0); MCV 85.4 fL (80.0-100.0); MEAN PLATELET VOLUME 9.6 fL (7.4-10.4); PLATELET COUNT 252 10x3/uL (130-400); RBC 3.36 10x6/uL (4.00-5.40); WBC 6.8 10x3/uL (4.8-10.8)
[2018-12-15 07:23] LABS: ALBUMIN 1.9 g/dL (3.4-5.0); BILIRUBIN - TOTAL 0.25 mg/dL (0.2-1.3); CARBON DIOXIDE 26.9 mmol/L (21.0-32.0); CREATININE - SERUM 0.9 mg/dL (0.6-1.3); POTASSIUM - SERUM 3.9 mmol/L (3.5-5.1); PROTEIN - SERUM 6.1 g/dL (6.4-8.2)
[2018-12-15 08:22] VITALS: BP 136/76
[2018-12-15 08:44] LABS: EOSINOPHILS 2 % (0-7); LYMPHOCYTES 20 % (15-50); MONOCYTES 25 % (2-11); NEUTROPHILS 52 % (40-80); PLATELET ESTIMATE NORMAL
[2018-12-15 12:28] VITALS: BP 177/93
--- NOTE | 2018-12-15 16:07 | NUR ---
DRESSING CHANGE DONE. WET TO DRY. PURULENT AND BLOODY DRAINAGE. NIMESH WRAP AROUND TO GIVE COMFORT TO PATIENT. CAP REFIL <3. CAN WIGGLE HER FINGERS. PATIENT TOLERATED DECENTLY. LINEN CHANGE WELL. PATIENT TOOK A SHORT WALK DOWN THE HALLWAY. WILL CONTINUE TO MONITOR. NO FURTHER NEEDS AT THIS TIME.
[2018-12-15 16:37] VITALS: BP 143/87
--- NOTE | 2018-12-15 19:00 | NUR ---
PT IN BED IN LOW FOWLERS POSITION. RESPIRATIONS EVEN AND UNLABORED. VS STABLE AND AFEBRILE. NO VISUAL CUES OF DISTRESS NOTED. WILL CONTINUE TO MONITOR.
[2018-12-16] VITALS: BP 147/91
[2018-12-16 04:00] VITALS: BP 156/66
[2018-12-16 04:53] LABS: BASOPHILS 0.5 % (0-2); EOSINOPHILS 1.7 % (0-7); HEMATOCRIT 30.3 % (36.0-48.0); HEMOGLOBIN 10.2 g/dL (12-16); LYMPHOCYTES 20.7 % (15-50); MCH 28.8 pg (26.0-34.0); MCHC 33.7 g/dL (31.0-37.0); MCV 85.6 fL (80.0-100.0); MEAN PLATELET VOLUME 9.6 fL (7.4-10.4); MONOCYTES 20.5 % (2-11); NEUTROPHILS 55.6 % (40-80); RBC 3.54 10x6/uL (4.00-5.40); RDW 12.9 % (11.5-14.5); WBC 7.7 10x3/uL (4.8-10.8)
[2018-12-16 04:56] LABS: PLATELET COUNT 304 10x3/uL (130-400)
[2018-12-16 05:06] LABS: ALBUMIN 2.1 g/dL (3.4-5.0); ANION GAP 11.4 mmol/L (8-16); BILIRUBIN - TOTAL 0.27 mg/dL (0.2-1.3); CALCIUM 8.3 mg/dL (8.5-10.1); CARBON DIOXIDE 25.9 mmol/L (21.0-32.0); POTASSIUM - SERUM 4.3 mmol/L (3.5-5.1); PROTEIN - SERUM 6.6 g/dL (6.4-8.2)
[2018-12-16 09:24] VITALS: BP 168/88
--- NOTE | 2018-12-16 11:37 | NUR ---
DRESSING NOTED TO BE OFF RIGHT HAND WITH OPEN WOUND NOTED. REPACKED TO BOTH WOUNDS WITH WET-DRY DRESSING AND COVERED WITH 4X4 AND WRAPPED WITH MARISOL/NIMESH WRAP. PT STATES SHE ATE THE FRITOS AT BEDSIDE. CALL PLACED TO DR PLATT TO INFORM HIM OF PT EATING WHEN SUPPOSE TO BE NPO
[2018-12-16 12:00] VITALS: BP 174/94
--- NOTE | 2018-12-16 13:28 | MORECARE ---
CASE MANAGEMENT DISCHARGE SUMMARY PATIENT: SUZI SHAVER UNIT: [id number] ADM DATE: 12/10/18 AGE: 53 : 61 SEX: F ROOM/BED: D.2230 AUTHOR: LINDY,DOC PHYSICIAN: REFERRING PHYSICIAN: FÉLIX ANDERSON MD DATE OF SERVICE: 12/16/18 Discharge Plan Patient Name: SUZI SHAVER Facility: [facility]:[place] : 1965 Planned Disposition: Home Anticipated Discharge Date: Discharge Date: Expected LOS: Initial Reviewer: [email or web address] Initial Review Date: 12/10/2018 Generated: 12/16/18 2:27 pm Comments DCP- Discharge Planning Updated by [email or web address]: Tracy Jj on 12/12/18 3:[address] Patient Name: SUZI SHAVER Admission Status: ER Accout number: [id number] Admission Date: 12-10-2018 : 1965 Admission Diagnosis:CELLULITIS OF LEFT UPPER LIMB Attending: FÉLIX ANDERSON Current LOS: 2 Anticipated DC Date: Planned Disposition: Home Primary Insurance: MEDICAID [place] Discharge Planning Comments: CM met with patient to complete initial dc planning assessment. CM educated patient on the CM role and verbal consent given by patient to complete assessment. Patient lives alone at home. At discharge patient plans to return and feels this is a safe discharge. CM discussed availability of home health, rehab services, and medical equipment. Patient denied known discharge needs at this time. States she is independent with all ADL's, she does not drive but her mother drives her where she needs to go. She states her mother will take her home. CM will continue to follow and will assist as needed with dc plans/needs. Geophysical Engineer: Tracy Jj DCP- Discharge Planning Updated by [email or web address]: Rola Edmond on 12/11/18 1:[address] attempted to see patient and she was sleeping, will try again at a later time DCPIA - Discharge Planning Initial Assessment Updated by [email or web address]: Tracy Jj on 12/12/18 4:24 pm * Is the patient Alert and Oriented? Yes * How many steps to enter\exit or inside your home? 1 flight/0 * PCP [facility] ([place]) * Pharmacy [facility] [address] * Preadmission Environment Home Alone * ADLs Independent * Equipment Cane Glucometer Wheelchair * List name and contact numbers for known caregivers / representatives who currently or will assist patient after discharge: Abena Moseely - mother - [phone] * Verbal permission to speak to the caregivers and representatives has been obtained from the patient. Yes * Community resources currently utilized None * Additional services required to return to the preadmission environment? Yes * Can the patient safely return to the preadmission environment? Yes * Has this patient been hospitalized within the prior 30 days at any hospital? No Last DP export: 12/12/18 3:32 pm Patient Name: SUZI SHAVER Page 13944 at 1328 All edits/amendments must be made on the electronic document DICTATION DATE: 12/16/181326 CHEESE MAKER: MIN 12/16/18 1327 RPT#: [id number] DC DATE: STATUS: ADM IN [facility] [address] [place] [address] END OF REPORT
[2018-12-16 17:43] VITALS: BP 165/92
--- NOTE | 2018-12-16 19:45 | NUR ---
PT RESTING IN BED. ALERT AND ORIENTED. NO SIGNS OF DISTRESS. BREATHING EVEN AND UNLABORED. PT STATES NO PROBLEMS AT THIS TIME. IV SITE RT SUBCLAVIN LINE DRESSING CLEAN DRY AND INTACT. NO SIGNS OF INFECTION. SKIN CLEAN DRY AND INTACT. LT HAND DRESSING CLEAN DRY AND INTACT. SOME SWELLING IN LT ARM. BOWEL SOUNDS ACTIVE. NO LOWER LEG SWELLING PRESENT. WILL CONTINUE PLAN OF CARE. CALL LIGHT IN REACH. BED LOWERED AND LOCKED. BED RAILS UP X2.
[2018-12-16 20:00] VITALS: BP 157/95
--- NOTE | 2018-12-16 21:00 | NUR ---
FSBS 125 NO INSULIN GIVEN AT THIS TIME PER SS.
--- NOTE | 2018-12-16 21:12 | NUR ---
OT NOTE: PT COMPLETED SUPINE TO SIT WITH SBA. PT COMPLETED STANDING WITH SBA. PT COMPLETED RUE AROM EX. PT COMPLETED AROM WITH LUE FINGERS. PT COMPLETED HYGIENE TASK WITH SET UP. THANK YOU, DAVID FREEMAN
[2018-12-17 04:00] VITALS: BP 176/94
[2018-12-17 05:25] LABS: HEMATOCRIT 29.5 % (36.0-48.0); HEMOGLOBIN 9.9 g/dL (12-16); MCH 28.4 pg (26.0-34.0); MCHC 33.6 g/dL (31.0-37.0); MCV 84.8 fL (80.0-100.0); MEAN PLATELET VOLUME 9.6 fL (7.4-10.4); PLATELET COUNT 325 10x3/uL (130-400); RBC 3.48 10x6/uL (4.00-5.40); RDW 12.8 % (11.5-14.5)
[2018-12-17 05:26] LABS: WBC 5.7 10x3/uL (4.8-10.8)
[2018-12-17 05:32] LABS: ANION GAP 11.1 mmol/L (8-16); BILIRUBIN - TOTAL 0.33 mg/dL (0.2-1.3); CALCIUM 8.1 mg/dL (8.5-10.1); CARBON DIOXIDE 26.9 mmol/L (21.0-32.0); CREATININE - SERUM 0.9 mg/dL (0.6-1.3); PROTEIN - SERUM 6.6 g/dL (6.4-8.2)
[2018-12-17 06:08] LABS: BASOPHILS 1 % (0-2); EOSINOPHILS 1 % (0-7); LYMPHOCYTES 19 % (15-50); MONOCYTES 15 % (2-11); NEUTROPHILS 64 % (40-80); PLATELET ESTIMATE NORMAL
--- NOTE | 2018-12-17 07:15 | NUR ---
REC'D IN WALKING ROUND AWAKE AND ALERT. RESP EVEN AND UNLABORED WITH NO DISTRESS NOTED. CAN EXPRESS NEEDS AND WANTS. NO C/O NOTED OR VOICED. ASSESSMENT COMPLETED. C/L IN REACH AT BEDSIDE.
[2018-12-17 08:39] VITALS: BP 194/99
--- NOTE | 2018-12-17 11:00 | NUR ---
PT REFUSED FOR DRESSING TO BE CHANGED ON TODAY. C/L IN REACH AT BEDSIDE.
--- NOTE | 2018-12-17 12:08 | NUR ---
THIS NURSE WALKED IN ON PT REMOVING DRESSING TO LEFT HAND. INFORMED PT NOT TO BE REMOVING DRESSING. PT VOICED UNDERSTANDING.
--- NOTE | 2018-12-17 13:01 | NUR ---
NUTRITION F/U PT TOLERATING DIABETIC DIET WITH GOOD INTAKE MEALS. WILL MONITOR PT MENU FOR APPROPRIATE CARBS. RD FOLLOWING
[2018-12-17 13:48] VITALS: BP 165/86
--- NOTE | 2018-12-17 15:25 | NUR ---
OT NOTE: L UE VERY EDEMATOUS. PT STATES THAT SHE HAS BEEN UNABLE TO MOVE L UE SINCE A SHOULDER SURGERY APPROX 1 YR AGO. PT ABLE TO MOVE FINGERS AND WAS ABLE TO PERFORM FINGER FLEX/EXT EXS X 10 REPS X 2 SETS. INSTRUCTED TO PERFORM THESE EXS THROUGHOUT DAY. PERFORMED PROM TO REMAINDER OF L UE. PT ABLE TO MOVE AROUND BED, TRANSFER, AMB TO BATHROOM, ETC WITH CGA. ELEVATED L UE TO IMPROVE EDEMA. PT REQUESTING PAIN MEDS. NURSING INFORMED. GLADIS MOFFETT, OTR/L
--- NOTE | 2018-12-17 15:48 | NUR ---
OT NOTE: PT COMPLETED BED TO TOILET MOB WITH SBA/CGA. PT COMPLETED BED MOB WITH SBA. PT COMPLETED RUE AROM AND LUE PROM. THANK YOU, DAVID FREEMAN
[2018-12-17 16:58] VITALS: BP 186/90
--- NOTE | 2018-12-17 19:45 | NUR ---
PT RESTING IN BED. ALERT AND ORIENTED. NO SIGNS OF DISTRESS. BREATHING EVEN AND UNLABORED. PT STATES NO PROBLEMS AT THIS TIME. IV SITE RT SUBCLAVIAN DRESSING CHANGED. CLEAN DRY AND INTACT. LT HAND DRESSING CLEAN DRY AND INTACT. SOME SWELLING IN LT ARM. BOWEL SOUNDS ACTIVE. TELE MONTIOR ON [address]. NO LOWER LEG SWELLING PRESENT. WILL CONTINUE PLAN OF CARE. CALL LIGHT IN REACH. BED LOWERED AND LOCKED. BED RAILS UP X2.
[2018-12-17 20:00] VITALS: BP 189/84
[2018-12-18 04:00] VITALS: BP 153/82
--- NOTE | 2018-12-18 04:28 | NUR ---
I have reviewed this patient and I concur with the Shift Assessment completed by the Licensed Practical Nurse today this shift.
[2018-12-18 05:51] LABS: HEMATOCRIT 31.1 % (36.0-48.0); HEMOGLOBIN 10.5 g/dL (12-16); MCH 28.8 pg (26.0-34.0); MCHC 33.8 g/dL (31.0-37.0); MCV 85.4 fL (80.0-100.0); MEAN PLATELET VOLUME 9.3 fL (7.4-10.4); PLATELET COUNT 323 10x3/uL (130-400); RBC 3.64 10x6/uL (4.00-5.40); RDW 13.1 % (11.5-14.5); WBC 5.9 10x3/uL (4.8-10.8)
[2018-12-18 06:17] LABS: ALBUMIN 2.1 g/dL (3.4-5.0); ANION GAP 10.9 mmol/L (8-16); BILIRUBIN - TOTAL 0.25 mg/dL (0.2-1.3); CALCIUM 8.3 mg/dL (8.5-10.1); CREATININE - SERUM 0.9 mg/dL (0.6-1.3); POTASSIUM - SERUM 3.9 mmol/L (3.5-5.1)
--- NOTE | 2018-12-18 08:00 | NUR ---
REC'D IN BED AWAKE AND ALERT. RESP EVEN AND UNLABORED WITH NO DISTRESS NOTD. ASSESSMENT COMPLETED. NO C/O NOTED OR VOICED. C/L IN REACH AT BEDSIDE.
[2018-12-18 08:30] LABS: CRENATED CELLS OCC; HYPOCHROMASIA OCC; LYMPHOCYTES 23 % (15-50); MONOCYTES 25 % (2-11); NEUTROPHILS 50 % (40-80); PLATELET ESTIMATE NORMAL
[2018-12-18 08:48] VITALS: BP 177/88
--- NOTE | 2018-12-18 11:37 | NUR ---
NORCO GIVEN AT THIS TIME C/O LEFT HAND 05/23. C/L IN REACH AT BEDSIDE
[2018-12-18 13:01] VITALS: BP 169/99
--- NOTE | 2018-12-18 15:04 | NUR ---
OT NOTE: PT CONT TO REPORT PAIN OF 7/10 IN L HAND. SIGNIFICANT EDEMA REMAINS IN L UE. PERFORMED PROM TO L UE AND POSITIONED ON PILLOWS TO ELEVATE AND ASSIST WITH EDEMA. WILL ATTEMPT RETROGRADE MASSAGE TOMMOROW IF L UE IS STILL EDEMATOUS. PT PERFORMING BASIC ADLS INCLUDING FEEDING, WASHING FACE, ETC WITH SET UP GLADIS MOFFETT OTR/L
[2018-12-18 16:47] VITALS: BP 180/92
--- NOTE | 2018-12-18 17:00 | NUR ---
DRESSING CHANGE AT THIS TIME. C/L IN REACH AT BEDSIDE.
--- NOTE | 2018-12-18 17:18 | NUR ---
OT NOTE: PT COMPLETED BED MOB WITH SPV. PT COMPLETED EOB SITTING WITH SPV/SBA. PT COMPLETED LUE FINGER EXT/FLEX. THANK YOU, DAVID FREEMAN
[2018-12-18 21:17] VITALS: BP 204/106
[2018-12-19 00:25] VITALS: BP 186/92
[2018-12-19 04:19] VITALS: BP 141/99
[2018-12-19 08:54] VITALS: BP 158/104
[2018-12-19 09:47] LABS: BASOPHILS 0.7 % (0-2); EOSINOPHILS 2.5 % (0-7); HEMATOCRIT 32.1 % (36.0-48.0); HEMOGLOBIN 10.9 g/dL (12-16); IMMATURE GRANULOCYTES 1.1 % (0-5); LYMPHOCYTES 35.8 % (15-50); MCH 28.9 pg (26.0-34.0); MEAN PLATELET VOLUME 9.2 fL (7.4-10.4); MONOCYTES 15.7 % (2-11); NEUTROPHILS 44.2 % (40-80); PLATELET COUNT 367 10x3/uL (130-400)
[2018-12-19 10:08] LABS: ALBUMIN 2.2 g/dL (3.4-5.0); ANION GAP 14.5 mmol/L (8-16); BILIRUBIN - TOTAL 0.32 mg/dL (0.2-1.3); CALCIUM 8.3 mg/dL (8.5-10.1); CARBON DIOXIDE 26.6 mmol/L (21.0-32.0); POTASSIUM - SERUM 4.1 mmol/L (3.5-5.1); PROTEIN - SERUM 7.5 g/dL (6.4-8.2)
--- NOTE | 2018-12-19 10:20 | NUR ---
ALERT AND ORIENTED WITH DRESSING INTACT TO LT. HAND WITH EDEMA NOTED. CAP REFILL <3 SEC TO FINGERS TO HAND WITH GENERALIZED EDEMA MOTED. NORCO GIVEN FOR PAIN AND EFFECTIVE. TEMEMETRY INTACT. ENCOURAGD TO USE CALL LIGHT FOR ASSIST
[2018-12-19 10:33] LABS: MCV 85.1 fL (80.0-100.0); RBC 3.77 10x6/uL (4.00-5.40); WBC 7.3 10x3/uL (4.8-10.8)
[2018-12-19] MEDS ORDERED: AUGMENTIN 875-11 TAB PO (11:20)
[2018-12-19] MEDS ORDERED: FLORAJEN3 CAPS460 MG PO (11:21)
[2018-12-19] MEDS ORDERED: NORCO-7.5 PO (11:22)
[2018-12-19] MEDS ORDERED: Nicoderm [PBKC] TRANSDERM (11:22)
--- NOTE | 2018-12-19 11:52 | MORECARE ---
CASE MANAGEMENT DISCHARGE SUMMARY PATIENT: SUZI SHAVER UNIT: [id number] ADM DATE: 12/10/18 AGE: 53 : 61 SEX: F ROOM/BED: D.2230 AUTHOR: LINDY,DOC PHYSICIAN: REFERRING PHYSICIAN: FÉLIX ANDERSON MD DATE OF SERVICE: 12/19/18 Discharge Plan Patient Name: SUZI SHAVER Facility: [facility]:[place] : 1965 Planned Disposition: Home Anticipated Discharge Date: Discharge Date: Expected LOS: Initial Reviewer: [id number] Initial Review Date: 12/10/2018 Generated: 12/19/18 12:52 pm Comments DCP- Discharge Planning Updated by [email or web address]: Tracy Jj on 12/12/18 3:[address] Patient Name: SUZI SHAVER Admission Status: ER Accout number: [id number] Admission Date: 12-10-2018 : 1965 Admission Diagnosis:CELLULITIS OF LEFT UPPER LIMB Attending: FÉLIX ANDERSON Current LOS: 2 Anticipated DC Date: Planned Disposition: Home Primary Insurance: MEDICAID [place] Discharge Planning Comments: CM met with patient to complete initial dc planning assessment. CM educated patient on the CM role and verbal consent given by patient to complete assessment. Patient lives alone at home. At discharge patient plans to return and feels this is a safe discharge. CM discussed availability of home health, rehab services, and medical equipment. Patient denied known discharge needs at this time. States she is independent with all ADL's, she does not drive but her mother drives her where she needs to go. She states her mother will take her home. CM will continue to follow and will assist as needed with dc plans/needs. Steam Turbine Operator: Tracy Jj DCP- Discharge Planning Updated by [id number]: Rola Edmond on 12/11/18 1:[address] attempted to see patient and she was sleeping, will try again at a later time DCPIA - Discharge Planning Initial Assessment Updated by [email or web address]: Tracy Jj on 12/12/18 4:24 pm * Is the patient Alert and Oriented? Yes * How many steps to enter\exit or inside your home? 1 flight/0 * PCP [facility] ([facility] * [facility] [address] * Preadmission Environment Home Alone * ADLs Independent * Equipment Cane Glucometer Wheelchair * List name and contact numbers for known caregivers / representatives who currently or will assist patient after discharge: Abena Moseley - [facility] - [phone] * Verbal permission to speak to the caregivers and representatives has been obtained from the patient. Yes * Community resources currently utilized None * Additional services required to return to the preadmission environment? Yes * Can the patient safely return to the preadmission environment? Yes * Has this patient been hospitalized within the prior 30 days at any hospital? No External Providers External Provider: [facility] Next Contact Date: Service Request Date: Service Type: Resolution: Reviewer: Comments: Coverage Notice Reviewer: [id number] Glenn Hendrickson Notice Issued Date-Time: 12/19/2018 11:44 Notice Type: Patient Choice Letter Notice Delivered To: Patient Relationship to Patient: Self Supervisor Harvesting Name: Delivery Method: HAND - Hand Delivered Atiya Days: Prior Verbal Notification: Recipient Understood Notice: Yes Recipient Signature: Yes Med Rec Note Co-signed by Attending: Coverage Notice Comment: [facility] Last DP export: 12/16/18 12:28 pm Patient Name: SUZI SHAVER Page 83227 at 1152 All edits/amendments must be made on the electronic document DICTATION DATE: 12/19/18 1152 WRAPPER LAYER: MIN 12/19/18 1152 RPT#: [id number] DC DATE: STATUS: ADM IN [facility] [address] [place] [address] END OF REPORT
--- NOTE | 2018-12-19 12:15 | MORECARE ---
CASE MANAGEMENT DISCHARGE SUMMARY PATIENT: SUZI SHAVER UNIT: [id number] ADM DATE: 12/10/18 AGE: 53 : 61 SEX: F ROOM/BED: D.2230 AUTHOR: LINDY,DOC PHYSICIAN: REFERRING PHYSICIAN: FÉLIX ANDERSON MD DATE OF SERVICE: 12/19/18 Discharge Plan Patient Name: SUZI SHAVER Facility: [facility]:[place] : 1965 Planned Disposition: Home with Home Health Anticipated Discharge Date: 12/19/18 Discharge Date: Expected LOS: 9 Initial Reviewer: [id number] Initial Review Date: 12/10/2018 Generated: 12/19/18 1:15 pm Comments DCP- Discharge Planning Updated by [email or web address]: Cherelle Hendrickson on 12/19/18 11:[address] Patient Name: SUZI SHAVER Admission Status: ER Accout number: [id number] Admission Date: 12-10-2018 : 1965 Admission Diagnosis:CELLULITIS OF LEFT UPPER LIMB Attending: FÉLIX ANDERSON Current LOS: 9 Anticipated DC Date: Planned Disposition: Home Primary Insurance: MEDICAID [place] Discharge Planning Comments: PATIENT WANTS [facility], [facility] SIGNED. NOTIFIED AND FAXED DOCUMENTS. WAITING FOR CALL BACK. PATIENT STATES HAS SOMEONE TO PICK HER UP AT TIME OF DC. Estimator Paperboard Boxes: Cherelle Hendrickson DCP- Discharge Planning Updated by [id number]: Tracy Jj on 12/12/18 3:[address] Patient Name: SUZI SHAVER Admission Status: ER Accout number: [id number] Admission Date: 12-10-2018 : 1965 Admission Diagnosis:CELLULITIS OF LEFT UPPER LIMB Attending: FÉLIX ANDERSON Current LOS: 2 Anticipated DC Date: Planned Disposition: Home Primary Insurance: MEDICAID [place] Discharge Planning Comments: CM met with patient to complete initial dc planning assessment. CM educated patient on the CM role and verbal consent given by patient to complete assessment. Patient lives alone at home. At discharge patient plans to return and feels this is a safe discharge. CM discussed availability of home health, rehab services, and medical equipment. Patient denied known discharge needs at this time. States she is independent with all ADL's, she does not drive but her mother drives her where she needs to go. She states her mother will take her home. CM will continue to follow and will assist as needed with dc plans/needs. Estimator Paperboard Boxes: Tracy Jj DCP- Discharge Planning Updated by [email or web address]: Rola Edmond on 12/11/18 1:[address] attempted to see patient and she was sleeping, will try again at a later time DCPIA - Discharge Planning Initial Assessment Updated by [email or web address]: Tracy Jj on 12/12/18 4:24 pm * Is the patient Alert and Oriented? Yes * How many steps to enter\exit or inside your home? 1 flight/0 * PCP [facility] ([facility]) * [facility] [address] * Preadmission Environment Home Alone * ADLs Independent * Equipment Cane Glucometer Wheelchair * List name and contact numbers for known caregivers / representatives who currently or will assist patient after discharge: Abena Moseley - mother - [phone] * Verbal permission to speak to the caregivers and representatives has been obtained from the patient. Yes * Community resources currently utilized None * Additional services required to return to the preadmission environment? Yes * Can the patient safely return to the preadmission environment? Yes * Has this patient been hospitalized within the prior 30 days at any hospital? No Coverage Notice Reviewer: [id number] Glenn Hendrickson Notice Issued Date-Time: 12/19/2018 11:44 Notice Type: Patient Choice Letter Notice Delivered To: Patient Relationship to Patient: Self Faculty Neuropsychologist Name: Delivery Method: HAND - Hand Delivered Atiya Days: Prior Verbal Notification: Recipient Understood Notice: Yes Recipient Signature: Yes Med Rec Note Co-signed by Attending: Coverage Notice Comment: [facility] Last DP export: 12/19/18 10:52 am Patient Name: SUZI SHAVER Page 52071 at 1215 All edits/amendments must be made on the electronic document DICTATION DATE: 12/19/18 1215 GARMENT EXAMINER: MIN 12/19/18 1215 RPT#: [id number] DC DATE: STATUS: ADM IN [facility] [address] [place] [address] END OF REPORT
--- NOTE | 2018-12-19 12:41 | MORECARE ---
CASE MANAGEMENT DISCHARGE SUMMARY PATIENT: SUZI SHAVER UNIT: [id number] ADM DATE: 12/10/18 AGE: 53 : 61 SEX: F ROOM/BED: D.2230 AUTHOR: LINDY,DOC PHYSICIAN: REFERRING PHYSICIAN: FÉLIX ANDERSON MD DATE OF SERVICE: 12/19/18 Discharge Plan Patient Name: SUZI SHAVER Facility: [facility]:[place] : 1965 Planned Disposition: Home with Home Health Anticipated Discharge Date: 12/19/18 Discharge Date: Expected LOS: 9 Initial Reviewer: [id number] Initial Review Date: 12/10/2018 Generated: 12/19/18 1:41 pm Comments DCP- Discharge Planning Updated by [id number]: Cherelle Hendrickson on 12/19/18 11:[address] Patient Name: SUZI SHAVER Admission Status: ER Accout number: [id number] Admission Date: 12-10-2018 : 1965 Admission Diagnosis:CELLULITIS OF LEFT UPPER LIMB Attending: FÉLIX ANDERSON Current LOS: 9 Anticipated DC Date: Planned Disposition: Home Primary Insurance: MEDICAID [place] Discharge Planning Comments: PATIENT WANTS [facility], [facility]LA SIGNED. NOTIFIED AND FAXED DOCUMENTS. WAITING FOR CALL BACK. PATIENT STATES HAS SOMEONE TO PICK HER UP AT TIME OF DC. Thermal Intelligence Analyst: Cherelle Hendrickson DCP- Discharge Planning Updated by [id number]: Tracy Jj on 12/12/18 3:[address] Patient Name: SUZI SHAVER Admission Status: ER Accout number: [id number] Admission Date: 12-10-2018 : 1965 Admission Diagnosis:CELLULITIS OF LEFT UPPER LIMB Attending: FÉLIX ANDERSON Current LOS: 2 Anticipated DC Date: Planned Disposition: Home Primary Insurance: MEDICAID [place] Discharge Planning Comments: CM met with patient to complete initial dc planning assessment. CM educated patient on the CM role and verbal consent given by patient to complete assessment. Patient lives alone at home. At discharge patient plans to return and feels this is a safe discharge. CM discussed availability of home health, rehab services, and medical equipment. Patient denied known discharge needs at this time. States she is independent with all ADL's, she does not drive but her mother drives her where she needs to go. She states her mother will take her home. CM will continue to follow and will assist as needed with dc plans/needs. Thermal Intelligence Analyst: Tracy Jj DCP- Discharge Planning Updated by [email or web address]: Rola Edmond on 12/11/18 1:[address] attempted to see patient and she was sleeping, will try again at a later time DCPIA - Discharge Planning Initial Assessment Updated by [email or web address]: Tracy Jj on 12/12/18 4:24 pm * Is the patient Alert and Oriented? Yes * How many steps to enter\exit or inside your home? 1 flight/0 * PCP [facility] ([facility]) * [facility] [address] * Preadmission Environment Home Alone * ADLs Independent * Equipment Cane Glucometer Wheelchair * List name and contact numbers for known caregivers / representatives who currently or will assist patient after discharge: Abena Moseley - mother - [phone] * Verbal permission to speak to the caregivers and representatives has been obtained from the patient. Yes * Community resources currently utilized None * Additional services required to return to the preadmission environment? Yes * Can the patient safely return to the preadmission environment? Yes * Has this patient been hospitalized within the prior 30 days at any hospital? No External Providers External Provider: [facility] Next Contact Date: Service Request Date: Service Type: Resolution: Reviewer: Comments: Coverage Notice Reviewer: [id number] Glenn Hendrickson Notice Issued Date-Time: 12/19/2018 11:44 Notice Type: Patient Choice Letter Notice Delivered To: Patient Relationship to Patient: Self Grill Prep Cook Name: Delivery Method: HAND - Hand Delivered Atiya Days: Prior Verbal Notification: Recipient Understood Notice: Yes Recipient Signature: Yes Med Rec Note Co-signed by Attending: Coverage Notice Comment: [facility] Last DP export: 12/19/18 11:15 am Patient Name: SUZI SHAVER Page 66335 at 1241 All edits/amendments must be made on the electronic document DICTATION DATE: 12/19/18 1241 LEGAL CASHIER: MIN 12/19/18 1241 RPT#: [id number] DC DATE: STATUS: ADM IN [facility] [address] [place] [address] END OF REPORT
[2018-12-19 12:53] VITALS: BP 171/93
--- NOTE | 2018-12-19 12:54 | MORECARE ---
CASE MANAGEMENT DISCHARGE SUMMARY PATIENT: SUZI SHAVER UNIT: [id number] ADM DATE: 12/10/18 AGE: 53 : 61 SEX: F ROOM/BED: D.2230 AUTHOR: LINDYDOC PHYSICIAN: REFERRING PHYSICIAN: FÉLIX ANDERSON MD DATE OF SERVICE: 12/19/18 Discharge Plan Patient Name: SUZI SHAVER Facility: [facility]:[place] : 1965 Planned Disposition: Home with Home Health Anticipated Discharge Date: 12/19/18 Discharge Date: Expected LOS: 9 Initial Reviewer: [email or web address] Initial Review Date: 12/10/2018 Generated: 12/19/18 1:54 pm Comments DCP- Discharge Planning Updated by [email or web address]: Cherelle Hendrickson on 12/19/18 11:[address] Patient Name: SUZI SHAEVR Admission Status: ER Accout number: [id number] Admission Date: 12-10-2018 : 1965 Admission Diagnosis:CELLULITIS OF LEFT UPPER LIMB Attending: FÉLIX ANDERSON Current LOS: 9 Anticipated DC Date: Planned Disposition: Home Primary Insurance: MEDICAID [place] Discharge Planning Comments: PATIENT WANTS [facility], KARLA SIGNED. HH NOTIFIED AND FAXED DOCUMENTS. WAITING FOR CALL BACK. PATIENT STATES HAS SOMEONE TO PICK HER UP AT TIME OF DC. Precision Devices Inspector/Tester: Cherelle Hendrickson Appended by Cherelle Hendrickson on 12/19/2018 12:44 SUPERVISOR COMMISSARY PRODUCTION: [facility] HH CANT SEE UNTIL SATURDAY, I'M CHECKING WITH [facility]. WAITING FOR CALL BACK. DCP- Discharge Planning Updated by [id number]: Tracy Jj on 12/12/18 3:[address] Patient Name: SUZI SHAVER Admission Status: ER Accout number: [id number] Admission Date: 12-10-2018 : 1965 Admission Diagnosis:CELLULITIS OF LEFT UPPER LIMB Attending: FÉLIX ANDERSON Current LOS: 2 Anticipated DC Date: Planned Disposition: Home Primary Insurance: MEDICAID [place] Discharge Planning Comments: CM met with patient to complete initial dc planning assessment. CM educated patient on the CM role and verbal consent given by patient to complete assessment. Patient lives alone at home. At discharge patient plans to return and feels this is a safe discharge. CM discussed availability of home health, rehab services, and medical equipment. Patient denied known discharge needs at this time. States she is independent with all ADL's, she does not drive but her mother drives her where she needs to go. She states her mother will take her home. CM will continue to follow and will assist as needed with dc plans/needs. Precision Devices Inspector/Tester: Tracy Анна DCP- Discharge Planning Updated by [id number]: Rola Edmond on 12/11/18 1:[address] attempted to see patient and she was sleeping, will try again at a later time DCPIA - Discharge Planning Initial Assessment Updated by [id number]: Tracy Анна on 12/12/18 4:24 pm * Is the patient Alert and Oriented? Yes * How many steps to enter\exit or inside your home? 1 flight/0 * PCP [facility] ([facility]) * Pharmacy [facility] [address] * Preadmission Environment Home Alone * ADLs Independent * Equipment Cane Glucometer Wheelchair * List name and contact numbers for known caregivers / representatives who currently or will assist patient after discharge: Abena Moseley - mother - [phone] * Verbal permission to speak to the caregivers and representatives has been obtained from the patient. Yes * Community resources currently utilized None * Additional services required to return to the preadmission environment? Yes * Can the patient safely return to the preadmission environment? Yes * Has this patient been hospitalized within the prior 30 days at any hospital? No Coverage Notice Reviewer: [id number] Glenn Hendrickson Notice Issued Date-Time: 12/19/2018 11:44 Notice Type: Patient Choice Letter Notice Delivered To: Patient Relationship to Patient: Self Show Girl Name: Delivery Method: HAND - Hand Delivered Atiya Days: Prior Verbal Notification: Recipient Understood Notice: Yes Recipient Signature: Yes Med Rec Note Co-signed by Attending: Coverage Notice Comment: [facility] Last DP export: 12/19/18 11:41 am Patient Name: SUZI SHAVER Page 79861 at 1254 All edits/amendments must be made on the electronic document DICTATION DATE: 12/19/18 125 PRINCIPAL PLANNER: MIN 12/19/18 1253 RPT#: [id number] DC DATE: STATUS: ADM IN [facility] [address] [place] [address] END OF REPORT
--- NOTE | 2018-12-19 14:49 | NUR ---
LEFT HAND HAD I&D AND HAS TWO OPEN AREAS MEDIAL WOUND 4.5CM X 1.5CM X 1CM AND 2CM X 2CM X 1CM. WOUND IS CLEAN, PINK/RED, NO DRAINAGE OR ODOR.
--- NOTE | 2018-12-19 16:32 | NUR ---
PT AND FAMILY VERBALIZED UNDERSTANDING OF DISCHARGE INSTRUCTIONS AND STABLE AT TIME OF DISCHARGE. DRESSING CHANGED TO LT. HAND WITH NO S/S OF INFECTION AT THIS TIME
--- NOTE | 2018-12-19 16:58 | MORECARE ---
CASE MANAGEMENT DISCHARGE SUMMARY PATIENT: SUZI SHAVER UNIT: [id number] ADM DATE: 12/10/18 AGE: 53 : 61 SEX: F ROOM/BED: D.2230 AUTHOR: MOHINI ISRAEL PHYSICIAN: REFERRING PHYSICIAN: FÉLIX ANDERSON MD DATE OF SERVICE: 12/19/18 Discharge Plan Patient Name: SUZI SHAVER Facility: [facility]:[place] : 1965 Planned Disposition: Home with Home Health Anticipated Discharge Date: 12/19/18 Discharge Date: 12/19/2018 Expected LOS: 9 Initial Reviewer: [id number] Initial Review Date: 12/10/2018 Generated: 12/19/18 5:57 pm Comments DCP- Discharge Planning Updated by [id number]: Cherelle Hendrickson on 12/19/18 11:[address] Patient Name: SUZI SHAVER Admission Status: ER Accout number: [id number] Admission Date: 12-10-2018 : 1965 Admission Diagnosis:CELLULITIS OF LEFT UPPER LIMB Attending: FÉLIX ANDERSON Current LOS: 9 Anticipated DC Date: Planned Disposition: Home Primary Insurance: MEDICAID [place] Discharge Planning Comments: PATIENT WANTS [facility], [facility]ALA SIGNED. HH NOTIFIED AND FAXED DOCUMENTS. WAITING FOR CALL BACK. PATIENT STATES HAS SOMEONE TO PICK HER UP AT TIME OF DC. Shipping Support Clerk: Cherelle Hendrickson Appended by Cherelle Hendrickson on 12/19/2018 12:44 SEGREGATOR: [facility] HH CANT SEE UNTIL SATURDAY, I'M CHECKING WITH [facility]. WAITING FOR CALL BACK. DCP- Discharge Planning Updated by [email or web address]: Tracy Jj on 12/12/18 3:[address] Patient Name: SUZI SHAVER Admission Status: ER Accout number: [id number] Admission Date: 12-10-2018 : 1965 Admission Diagnosis:CELLULITIS OF LEFT UPPER LIMB Attending: FÉLIX ANDERSON Current LOS: 2 Anticipated DC Date: Planned Disposition: Home Primary Insurance: MEDICAID [place] Discharge Planning Comments: CM met with patient to complete initial dc planning assessment. CM educated patient on the CM role and verbal consent given by patient to complete assessment. Patient lives alone at home. At discharge patient plans to return and feels this is a safe discharge. CM discussed availability of home health, rehab services, and medical equipment. Patient denied known discharge needs at this time. States she is independent with all ADL's, she does not drive but her mother drives her where she needs to go. She states her mother will take her home. CM will continue to follow and will assist as needed with dc plans/needs. Shipping Support Clerk: Tracy Jj DCP- Discharge Planning Updated by [email or web address]: Rola Edmond on 12/11/18 1:[address] attempted to see patient and she was sleeping, will try again at a later time DCPIA - Discharge Planning Initial Assessment Updated by [email or web address]: Tracy Jj on 12/12/18 4:24 pm * Is the patient Alert and Oriented? Yes * How many steps to enter\exit or inside your home? 1 flight/0 * PCP [facility] ([facility] * Pharmacy [facility] [address] * Preadmission Environment Home Alone * ADLs Independent * Equipment Cane Glucometer Wheelchair * List name and contact numbers for known caregivers / representatives who currently or will assist patient after discharge: Abena Moseley - mother - [phone] * Verbal permission to speak to the caregivers and representatives has been obtained from the patient. Yes * Community resources currently utilized None * Additional services required to return to the preadmission environment? Yes * Can the patient safely return to the preadmission environment? Yes * Has this patient been hospitalized within the prior 30 days at any hospital? No Coverage Notice Reviewer: [id number] Glenn Hendrickson Notice Issued Date-Time: 12/19/2018 11:44 Notice Type: Patient Choice Letter Notice Delivered To: Patient Relationship to Patient: Self Rental Clerk Name: Delivery Method: HAND - Hand Delivered Atiya Days: Prior Verbal Notification: Recipient Understood Notice: Yes Recipient Signature: Yes Med Rec Note Co-signed by Attending: Coverage Notice Comment: C[facility] IV [facility]ER[facility] RON Last DP export: 12/19/18 11:54 am Patient Name: SUZI SHAVER Page 26130 at 1650 All edits/amendments must be made on the electronic document DICTATION DATE: 12/19/181656 MACHINE SHOP INSPECTOR: MIN 12/19/181656 RPT#: [id number] DC DATE:12/19/18 STATUS: DIS IN [facility] [address] [place] [address] END OF REPORT
[2018-12-20 19:08] LABS: AEROBE ID Final report (()); RESULT 1 Eikenella corrodens (())
[2018-12-22 18:08] LABS: AEROBE ID Final report (())
== END 2018-12-19 16:34 | disposition home health service (06) | DRG 579 ==
LOC: D.ER 10:11 → D.EDHOLD 12:41 → D.MS 12:41 → D.SDCHOLD 12-14 15:13 → D.MS 12-14 15:22
PROVIDERS: Emergency Medicine; Family Medicine; Orthopaedic Surgery; Student in an Organized Health Care Education/Training Program; ADMIT Internal Medicine Nephrology; ATTEND Internal Medicine Nephrology
PROC: 0J9H0ZZ Drainage of Left Lower Arm Subcutaneous Tissue and Fascia, Open Approach (ICD-10-PCS; principal; 2018-12-11 17:00)
DX: L03.114 Cellulitis of left upper limb (principal); I33.0 Acute and subacute infective endocarditis; F17.213 Nicotine dependence, cigarettes, with withdrawal; I10 Essential (primary) hypertension; E11.9 Type 2 diabetes mellitus without complications; F20.9 Schizophrenia, unspecified

== ENCOUNTER → 2019-01-20 10:55 | Outpatient (CLI) | payer MEDICAID ==
[2018-12-11 15:45] VITALS: BMI 37.8
[~2019-01-20 10:55] MED LIST changes: +AUGMENTIN 875-11 TAB PO; +FLORAJEN3 CAPS460 MG PO; +NORCO-7.5 PO; +Nicoderm [PBKC] TRANSDERM
== END | disposition home or self-care (01) ==
LOC: D.RAD 09:45
PROVIDERS: ATTEND Student in an Organized Health Care Education/Training Program
DX: R22.32 Localized swelling, mass and lump, left upper limb (principal)

== ENCOUNTER → 2019-03-10 14:04 | Outpatient (CLI) | payer MEDICAID ==
[2018-12-11 15:45] VITALS: BMI 37.8
== END | disposition home or self-care (01) ==
LOC: D.MRI 02-24 10:00
PROVIDERS: ATTEND Orthopaedic Surgery
DX: M66.242 Spontaneous rupture of extensor tendons, left hand (principal)

== ENCOUNTER 2019-04-08 05:40 | Day surgery (SDC) | payer MEDICAID ==
[2019-04-03 09:12] LABS: BASOPHILS 0.4 % (0-2); HEMATOCRIT 36.9 % (36.0-48.0); HEMOGLOBIN 12.7 g/dL (12-16); IMMATURE GRANULOCYTES 0.3 % (0-5); MCH 29.3 pg (26.0-34.0); MCHC 34.4 g/dL (31.0-37.0); MCV 85.2 fL (80.0-100.0); MEAN PLATELET VOLUME 9.7 fL (7.4-10.4); MONOCYTES 15.9 % (2-11); NEUTROPHILS 48.4 % (40-80); RBC 4.33 10x6/uL (4.00-5.40); RDW 14.6 % (11.5-14.5); WBC 6.9 10x3/uL (4.8-10.8)
[2019-04-03 09:13] LABS: PLATELET COUNT 180 10x3/uL (130-400)
[2019-04-03 09:36] LABS: CALCIUM 9.4 mg/dL (8.5-10.1); CARBON DIOXIDE 23.1 mmol/L (21.0-32.0); POTASSIUM - SERUM 4.1 mmol/L (3.5-5.1)
[~2019-04-08] VITALS: Ht 167.6 cm; Wt 109.8 kg
[2019-04-08] MEDS ORDERED: KEFLEX500 MG PO (07:45)
[2019-04-08 07:47] VITALS: BP 148/93; Ht 167.6 cm; Wt 109.8 kg
--- NOTE | 2019-04-08 14:46 | NUR ---
1420 IV REMOVED AND PT GIVEN INSTRUCTIOS TO FOLLOW FROM DR LOYOLA.
== END 2019-04-08 14:25 | disposition home or self-care (01) ==
LOC: D.OPS 05:40 → D.PAN 12:30 → D.OPS 13:15
PROVIDERS: ATTEND Orthopaedic Surgery
DX: M67.844 Other specified disorders of tendon, left hand (principal); M66.242 Spontaneous rupture of extensor tendons, left hand; Z01.812 Encounter for preprocedural laboratory examination

== ENCOUNTER → 2019-07-15 10:47 | Outpatient (CLI) | payer MEDICAID ==
[2019-04-08 07:47] VITALS: BMI 39.1
== END | disposition home or self-care (01) ==
LOC: D.CT 10:47
PROVIDERS: ATTEND Orthopaedic Surgery
DX: M25.512 Pain in left shoulder (principal)

== ENCOUNTER → 2019-08-03 17:31 | Outpatient (CLI) | payer MEDICAID ==
[2019-04-08 07:47] VITALS: BMI 39.1
[2019-08-03 18:07] LABS: HEMATOCRIT 40.4 % (36.0-48.0); HEMOGLOBIN 13.6 g/dL (12-16); MCH 30.6 pg (26.0-34.0); MCHC 33.7 g/dL (31.0-37.0); MCV 90.8 fL (80.0-100.0); MEAN PLATELET VOLUME 10.2 fL (7.4-10.4); RBC 4.45 10x6/uL (4.00-5.40); RDW 14.8 % (11.5-14.5); WBC 5.7 10x3/uL (4.8-10.8)
[2019-08-03 18:13] LABS: PLATELET COUNT 224 10x3/uL (130-400)
[2019-08-03 19:05] LABS: EOSINOPHILS 5 % (0-7); LYMPHOCYTES 40 % (15-50); MONOCYTES 5 % (2-11); NEUTROPHILS 50 % (40-80); PLATELET ESTIMATE NORMAL
[2019-08-03 19:08] LABS: ERYTHROCYTE SEDIMENTATION RATE 24 mm/hr (0-30)
== END | disposition home or self-care (01) ==
LOC: D.LABREF 17:31
PROVIDERS: ATTEND Orthopaedic Surgery
DX: M25.512 Pain in left shoulder (principal)

== ENCOUNTER 2019-09-18 09:00 | Outpatient (CLI) | payer MEDICAID ==
[2019-04-08 07:47] VITALS: BMI 39.1
== END 2019-09-18 10:00 | disposition home or self-care (01) ==
LOC: D.MAMMO 09:00
PROVIDERS: ATTEND Nurse Practitioner Family
DX: Z12.31 Encounter for screening mammogram for malignant neoplasm of breast (principal)

== ENCOUNTER 2019-10-31 13:36 | Emergency (ER) | payer MEDICAID ==
[2019-10-31 13:46] VITALS: Ht 167.6 cm
[2019-10-31] MEDS ORDERED: ZESTRIL40 MG PO (16:08)
[2019-10-31 16:12] VITALS: BP 152/96
== END 2019-10-31 16:13 | disposition home or self-care (01) ==
LOC: D.ER 13:36
DX: M25.512 Pain in left shoulder (principal); E11.9 Type 2 diabetes mellitus without complications; I10 Essential (primary) hypertension; Z79.4 Long term (current) use of insulin

== ENCOUNTER 2019-11-11 09:13 | Emergency (ER) | payer MEDICAID ==
[~2019-11-11] VITALS: Ht 167.6 cm; Wt 106.6 kg
[2019-11-11 09:18] VITALS: Ht 167.6 cm; Wt 106.6 kg
[2019-11-11 10:44] LABS: APPEARANCE CLEAR (CLEAR); BACTERIA FEW /hpf (NEGATIVE); BILIRUBIN NEGATIVE (NEGATIVE); COLOR YELLOW (YELLOW); EPITHELIAL CELLS 0-5 /hpf (0-5); GLUCOSE 1000 mg/dL (NEGATIVE); KETONE SMALL mg/dL (NEGATIVE); NITRITE NEGATIVE (NEGATIVE); PROTEIN 1+ mg/dL (NEGATIVE); RED CELLS - URINE RARE /hpf (0-5); SPECIFIC GRAVITY 1.015 (1.005-1.020); UROBILINOGEN NORMAL (NORMAL); WHITE CELLS - URINE 0-5 /hpf (NEGATIVE); YEAST <1+ /hpf (NONE SEEN)
[2019-11-11 11:14] LABS: BASOPHILS 0.1 % (0-2); EOSINOPHILS 1.1 % (0-7); HEMATOCRIT 41.7 % (36.0-48.0); HEMOGLOBIN 14.6 g/dL (12-16); IMMATURE GRANULOCYTES 0.1 % (0-5); LYMPHOCYTES 28.3 % (15-50); MCV 85.6 fL (80.0-100.0); MEAN PLATELET VOLUME 10.2 fL (7.4-10.4); MONOCYTES 11.1 % (2-11); NEUTROPHILS 59.3 % (40-80); PLATELET COUNT 194 10x3/uL (130-400); RBC 4.87 10x6/uL (4.00-5.40); RDW 12.6 % (11.5-14.5); WBC 7.2 10x3/uL (4.8-10.8)
[2019-11-11 11:17] LABS: KETONE - SERUM NEGATIVE (NEGATIVE)
[2019-11-11 11:21] LABS: ALBUMIN 2.8 g/dL (3.4-5.0); ALKALINE PHOSPHATASE 118 U/L (30-120); ALT (SGPT) 22 U/L (10-68); BILIRUBIN - TOTAL 0.38 mg/dL (0.2-1.3); CALC OSMOLALITY 285 mosm/kg (275-300); CALCIUM 8.9 mg/dL (8.5-10.1); CARBON DIOXIDE 26.8 mmol/L (21.0-32.0); CHLORIDE - SERUM 99 mmol/L (98-107); MAGNESIUM - SERUM 1.9 mg/dL (1.8-2.4); POTASSIUM - SERUM 3.4 mmol/L (3.5-5.1); PROTEIN - SERUM 7.4 g/dL (6.4-8.2); SODIUM 133 mmol/L (136-145); UREA NITROGEN 14 mg/dL (7-18); eGFR NON AFRICAN AMERICAN 61 mL/min (90-120)
[2019-11-11 11:23] LABS: GLUCOSE 440 mg/dL (74-106)
[2019-11-11] MEDS ORDERED: CLEOCIN HCL300 MG PO (11:46)
[2019-11-11] MEDS ORDERED: LISINOPRIL40 MG PO (11:50)
[2019-11-11] MEDS ORDERED: CATAPRES0.2 MG PO (11:50)
[2019-11-11] MEDS ORDERED: TOUJEO SOL300 UNIT/1 SC (11:50)
[2019-11-11 12:05] VITALS: BP 181/111
== END 2019-11-11 12:00 | disposition home or self-care (01) ==
LOC: D.ER 09:13
PROVIDERS: Family Medicine
DX: E11.65 Type 2 diabetes mellitus with hyperglycemia (principal); L03.113 Cellulitis of right upper limb; F15.10 Other stimulant abuse, uncomplicated; I10 Essential (primary) hypertension; Z91.14 Patient's other noncompliance with medication regimen; Z72.0 Tobacco use; Z79.4 Long term (current) use of insulin

== ENCOUNTER → 2019-12-10 12:57 | Outpatient (CLI) | payer MEDICAID ==
[~2019-12-10 12:57] MED LIST changes: +CLEOCIN HCL300 MG PO; +LISINOPRIL40 MG PO; +TOUJEO SOL300 UNIT/1 SC
--- NOTE | 2019-12-10 14:37 | NUR ---
TIME OUT PERFORMED BY DR. BRITO & CATRINA DOYLE RTR @ 5167. PATIENT, , & PROCEDURE VERIFIED.
== END | disposition home or self-care (01) ==
LOC: D.RAD 12:57 → D.CT 15:00
PROVIDERS: ATTEND Clinical Nurse Specialist Family Health
DX: M25.512 Pain in left shoulder (principal)